=== PATIENT | female | born 1930 | race Caucasian/White ===

== ENCOUNTER 2017-06-04 16:55 | Outpatient (CLI) | payer MEDICARE ==
--- NOTE | 2017-06-04 17:31 | XRAY Preliminary Report ---
Exam: XR CHEST 2 VIEW PA/LAT IMPRESSION: No acute disease. [facility] SITE ID: [id number]
--- NOTE | 2017-06-04 17:34 | XRAY Report ---
EXAM: CHEST RADIOGRAPHY EXAM DATE: 06/04/2017 05:19 PM. CLINICAL HISTORY: COUGH. COMPARISON: 05/27/2012. TECHNIQUE: 2 views. FINDINGS: Lungs/Pleura: Hyperexpanded with flattened diaphragm typical of COPD. No localized infiltrate, consol idation, effusion, or pneumothorax. Mediastinum: Heart and mediastinal contours are unremarkable. Other: None. IMPRESSION: No acute disease. [facility] Referring Provider Line: [phone] SITE ID: [id number]
== END 2017-06-04 16:56 | disposition home or self-care (01) ==
LOC: DI 16:55
PROVIDERS: ATTEND Internal Medicine
DX: R05 Cough (principal)
CPT/HCPCS: 71020

== ENCOUNTER 2017-06-28 12:49 | Inpatient (IN) | payer MEDICARE ==
[2017-06-28 13:31] LABS: BASOPHILS % (AUTO) 0.1 %; HCT - HEMATOCRIT 39.6 % (37.0-47.0); HGB - HEMOGLOBIN 13.5 g/dL (12.0-16.0); LYMPHOCYTES # (AUTO) 0.2 10^3/uL (1.5-3.5); LYMPHOCYTES % (AUTO) 1.2 %; MEAN CORPUSCULAR HEMOGLOBIN 30.8 pg (27.0-31.0); MEAN CORPUSCULAR VOLUME 90.7 fL (81.0-99.0); MEAN PLATELET VOLUME 7.4 fL (7.9-10.8); MONOCYTES % (AUTO) 6.2 %; NEUTROPHILS % (AUTO) 92.5 %; RED BLOOD COUNT 4.37 10^6/uL (4.20-5.40); RED CELL DISTRIBUTION WIDTH 13.3 % (12.0-15.0); UNCORRECTED WHITE BLOOD COUNT 16.2 x10^3/uL; WHITE BLOOD COUNT 16.2 x10^3/uL (4.8-10.8)
[2017-06-28 13:39] LABS: ALBUMIN/GLOBULIN RATIO 0.9 (1.0-2.2); BILIRUBIN,TOTAL 0.9 mg/dL (0.2-1.0); BUN - BLOOD UREA NITROGEN 14 mg/dL (6-20); CALCIUM 9.1 mg/dL (8.5-10.3); CARBON DIOXIDE - CO2 24 mmol/L (21-32); CHLORIDE 100 mmol/L (101-111); CREATININE 0.6 mg/dL (0.4-1.0); GFR - MDRD 95 (>89); GLUCOSE 185 mg/dL (70-100); LIPASE 17 U/L (22-51); POTASSIUM 4.1 mmol/L (3.5-5.0); SODIUM 135 mmol/L (135-145); TOTAL PROTEIN 7.8 g/dL (6.7-8.2)
[2017-06-28] MEDS ORDERED: SODIUM CHLORIDE 0.9% 1,000 ML IV ONE ×3 (13:49→14:11)
--- NOTE | 2017-06-28 13:49 | XRAY Preliminary Report ---
Exam: XR CHEST 1 VIEW IMPRESSION: 1. Right basal opacity may reflect pneumonia. [facility] SITE ID: [id number]
--- NOTE | 2017-06-28 13:52 | XRAY Report ---
EXAM: CHEST RADIOGRAPHY EXAM DATE: 06/28/2017 01:30 PM. CLINICAL HISTORY: Cough. COMPARISON: 06/04/2017. TECHNIQUE: 1 view. FINDINGS: Lungs/Pleura: Mild right lung base opacity may reflect pneumonia. Lungs are otherwise clear. No pleur al effusion or pneumothorax. Apparent mild pulmonary hyperinflation may reflect COPD. Mediastinum: Unremarkable. Other: None. IMPRESSION: 1. Right basal opacity may reflect pneumonia. [facility] Referring Provider Line: [phone] SITE ID: [id number]
--- NOTE | 2017-06-28 13:53 | ED Physician Documentation ---
History of Present Illness - Stated complaint Stated Complaint: DIFF BREATHING - Chief complaint Chief Complaint: Resp - History obtained from History obtained from: Patient, Family - History of Present Illness Timing: How many days ago (several) Pain level max: 0 Pain level now: 0 Improved by: nothing Worsened by: nothing - Additonal information Additional information: Patient is an 86-year-old female with Parkinson's disease who lives at home. Over the past few days has had increased coughing and increasing weakness. No fevers. Has had a history of recurrent pneumonia in the past. No recent antibiotics. Review of Systems Ten Systems: 10 systems reviewed and negative Constitutional: denies: Fever, Chills Ears: denies: Ear pain Nose: denies: Rhinorrhea / runny nose, Congestion Throat: denies: Sore throat Cardiac: denies: Chest pain / pressure Respiratory: reports: Cough GI: denies: Nausea, Vomiting, Diarrhea Skin: denies: Rash Musculoskeletal: denies: Neck pain, Back pain Neurologic: reports: Generalized weakness. denies: Focal weakness, Numbness, Headache PD PAST MEDICAL HISTORY - Past Medical History Past Medical History: Yes Neuro: Parkinson's - Present Medications Home Medications: Ambulatory Orders Medication Instructions Recorded Confirmed Carbidopa/Levodopa [Carbidopa-Levo 1 each SL BID 06/28/17 ER 25-100 Tab] Carbidopa/Levodopa 1 tab SL BID 06/28/17 06/28/17 [Carbidopa-Levodopa 25-100 Tab] Hypromellose [Pure & Gentle Eye 15 ml OP PRN PRN 06/28/17 06/28/17 Drops] Mineral Oil/Petrolatum,White 1 applic OP QPM 06/28/17 06/28/17 [Lubrifresh Pm Eye Ointment] Tolterodine Tartrate [Tolterodine 2 mg PO QPM 06/28/17 06/28/17 Tartrate ER] - Allergies Allergies/Adverse Reactions: Allergies Allergy/AdvReac Type Severity Reaction Status Date / Time Penicillins Allergy Unknown Verified 06/28/17 13:03 shellfish derived Allergy Anaphylaxis Verified 06/28/17 13:04 - Living Situation Living Situation: reports: With family Living Arrangement: reports: At home - Social History Does the pt smoke?: No Does the pt drink ETOH?: No Does the pt have substance abuse?: No - Family History Family history: reports: Non contributory PD ED PE NORMAL - Vitals Vital signs reviewed: Yes - General General: Alert and oriented X 3, No acute distress - HEENT HEENT: Ears normal, Moist mucous membranes, Pharynx benign - Neck Neck: Supple, no meningeal sign - Cardiac Cardiac: RRR - Respiratory Respiratory: No respiratory distress, Other (rhonchi B) - Abdomen Abdomen: Soft, Non tender, Non distended - Derm Derm: Warm and dry, No rash - Extremities Extremities: No edema, No calf tenderness / cord - Neuro Neuro: Alert and oriented X 3 Results - Vitals Vitals: Vital Signs - 24 hr 06/28/17 06/28/17 12:59 13:05 Temperature 36.9 C Heart Rate 118 H 112 H Respiratory 20 18 Rate Blood Pressure 115/74 107/72 O2 Saturation 92 95 Oxygen O2 Source Nasal cannula Oxygen Flow Rate 2 - EKG (time done) 1305 Rate: Rate (enter#) (109) Rhythm: Sinus tachycardia [place]: Normal Intervals: Normal [place] QRS: Normal Ischemia: Non specific changes - Labs Labs: Laboratory Tests 06/28/17 06/28/17 06/28/17 13:15 13:15 13:15 WBC 16.2 H RBC 4.37 Hgb 13.5 Hct 39.6 MCV 90.7 MCH 30.8 MCHC 34.0 RDW 13.3 Plt Count 306 MPV 7.4 L Neut # 15.0 H Lymph # 0.2 L [place] # 1.0 Eos # 0.0 Baso # 0.0 Absolute Nucleated RBC 0.00 Nucleated RBC % 0.0 Sodium 135 Potassium 4.1 Chloride 100 L Carbon Dioxide 24 Anion Gap 11.0 BUN 14 Creatinine 0.6 Estimated GFR (MDRD) 95 Glucose 185 H Lactic Acid 2.5 H Calcium 9.1 Total Bilirubin 0.9 AST 15 ALT < 10 L Alkaline Phosphatase 57 Troponin I B-Natriuretic Peptide Total Protein 7.8 Albumin 3.7 Globulin 4.1 Albumin/Globulin Ratio 0.9 L Lipase 17 L 06/28/17 06/28/17 13:15 13:15 WBC RBC Hgb Hct MCV MCH MCHC RDW Plt Count MPV Neut # Lymph # [place] # Eos # Baso # Absolute Nucleated RBC Nucleated RBC % Sodium Potassium Chloride Carbon Dioxide Anion Gap BUN Creatinine Estimated GFR (MDRD) Glucose Lactic Acid Calcium Total Bilirubin AST ALT Alkaline Phosphatase Troponin I 0.04 B-Natriuretic Peptide 88 Total Protein Albumin Globulin Albumin/Globulin Ratio Lipase - Rads (name of study) cxr Radiology: Prelim report reviewed, EMP read contemporaneously, See rad report ( R basilar opacity. Poss pneumonia) PD MEDICAL DECISION MAKING - ED course Complexity details: reviewed results, re-evaluated patient, considered differential, d/w patient, d/w family, d/w client consultant (Lisbet Odell (hospitalist )) ED course: Patient is an 86-year-old female with parkinsons who presents to the emergency department what appears to be pneumonia. She is a DNR with limited interventions. She was started on IV antibiotics as well as given IV fluids. Discussed the case with the hospitalist who accepts. She is also hypoxic and started on oxygen. This document was made in part using voice recognition software. While efforts are made to proofread this document, sound alike and grammatical errors may occur. Departure - Departure Disposition: 66 [facility] DC/Xfer Clinical Impression: Pneumonia Qualifiers: Pneumonia type: due to unspecified organism Laterality: right Lung location: lower lobe of lung Qualified Code(s): J18.1 - Lobar pneumonia, unspecified organism Sepsis Qualifiers: Sepsis type: sepsis due to unspecified organism Qualified Code(s): A41.9 - Sepsis, unspecified organism Condition: Stable Discharge Date/Time: 06/28/17 15:20
[2017-06-28] MEDS ORDERED: SODIUM CHLORIDE FLUSH 0.9% 10 ML SYRINGE IVP PRN (14:57)
[2017-06-28] MEDS ORDERED: ZOLPIDEM 5 MG TABLET PO PRN (15:00)
[2017-06-28] MEDS ORDERED: PROCHLORPERAZINE 10 MG/2 ML VIAL IVP PRN (15:00)
[2017-06-28] MEDS ORDERED: ACETAMINOPHEN 325 MG TABLET PO PRN (15:00)
[2017-06-28 15:34] LABS: BILIRUBIN,URINE NEGATIVE (NEGATIVE); PH,URINE 6.5 PH (5.0-7.5)
[2017-06-28 15:49] LABS: UR CULTURE IF IND NOT INDICATED; WBC,URINE 0-3 /HPF (0-5)
[2017-06-28] MEDS ORDERED: SODIUM CHLORIDE 0.9% 1,000 ML IV SCH (16:00)
[2017-06-28] MEDS: CLINDAMYCIN 600 MG/50 ML 50 ML IV SCH (17:36)
[2017-06-28] MEDS: SODIUM CHLORIDE FLUSH 0.9% 10 ML SYRINGE IVP SCH (19:25)
[2017-06-28] MEDS: LACTATED RINGERS 1,000 ML IV SCH (19:25)
[2017-06-28] MEDS ORDERED: HYPROMELLOSE OP PRN (19:40)
[2017-06-28] MEDS ORDERED: CARBIDOPA/LEVODOPA ER 25 MG/100 MG TABLET PO SCH (21:00)
[2017-06-28] MEDS ORDERED: CARBIDOPA/LEVODOPA 25 MG/100 MG TABLET PO SCH (21:00)
[2017-06-28] MEDS: TOLTERODINE LA 2 MG CAPSULE PO SCH (21:45)
[2017-06-28] MEDS: CARBIDOPA/LEVODOPA 25 MG/100 MG TABLET PO SCH (22:00)
[2017-06-29] MEDS: CLINDAMYCIN 600 MG/50 ML 50 ML IV SCH ×3 (00:50→16:47)
[2017-06-29] MEDS ORDERED: CARBOXYMETHYLCELLULOSE OPHTH DROPS EACHEYE PRN (03:25)
[2017-06-29] MEDS: SODIUM CHLORIDE FLUSH 0.9% 10 ML SYRINGE IVP SCH ×3 (04:33→20:23)
[2017-06-29] MEDS: LACTATED RINGERS 1,000 ML IV SCH ×2 (05:11→16:47)
[2017-06-29 05:21] LABS: BASOPHILS % (AUTO) 0.2 %; EOSINOPHILS % (AUTO) 0.2 %; HCT - HEMATOCRIT 32.9 % (37.0-47.0); LYMPHOCYTES # (AUTO) 0.5 10^3/uL (1.5-3.5); LYMPHOCYTES % (AUTO) 3.9 %; MEAN CORPUSCULAR HEMOGLOBIN 30.9 pg (27.0-31.0); MEAN CORPUSCULAR HGB CONC 33.5 g/dL (32.0-36.0); MEAN CORPUSCULAR VOLUME 92.1 fL (81.0-99.0); MEAN PLATELET VOLUME 7.3 fL (7.9-10.8); MONOCYTES # (AUTO) 1.1 10^3/uL (0.0-1.0); MONOCYTES % (AUTO) 8.8 %; NEUTROPHILS # (AUTO) 11.2 10^3/uL (1.5-6.6); NEUTROPHILS % (AUTO) 86.9 %; RED BLOOD COUNT 3.57 10^6/uL (4.20-5.40); RED CELL DISTRIBUTION WIDTH 13.4 % (12.0-15.0); UNCORRECTED WHITE BLOOD COUNT 12.9 x10^3/uL; WHITE BLOOD COUNT 12.9 x10^3/uL (4.8-10.8)
[2017-06-29 05:25] LABS: INR 1.4 (0.8-1.2); PT - PROTHROMBIN TIME 15.1 secs (9.9-12.6)
[2017-06-29 05:32] LABS: CALCIUM 8.4 mg/dL (8.5-10.3); CREATININE 0.4 mg/dL (0.4-1.0); MAGNESIUM 1.7 mg/dL (1.7-2.8); POTASSIUM 3.7 mmol/L (3.5-5.0)
[2017-06-29] MEDS ORDERED: FAMOTIDINE 20 MG TABLET PO SCH (09:00)
--- NOTE | 2017-06-29 09:45 | XRAY Report ---
FRONTAL CHEST: 06/29/2017 CLINICAL INDICATION: Pneumonia. FINDINGS: Frontal view of the chest is compared to previous film of 06/28/2017. The cardiac silhouette is within normal limits. A right basilar infiltrate is increasing. No effusion or pneumothorax is seen. IMPRESSION: INCREASING RIGHT BASILAR INFILTRATE. JOB #: [id number] EXT JOB #:[id number]
--- NOTE | 2017-06-29 09:58 | HISTORY & PHYSICAL EXAMINATION ---
DATE OF ADMISSION: 06/28/2017 HISTORY OF PRESENT ILLNESS: This is an 86-year-old white female with history significant for Parkinson disease who lives at home. Her is her main caregiver. She is able to stand and sit in a wheelchair, but carries out no other activity. She uses a bedside commode. Over the past few days, she has had increasing coughing and overall weakness. There have been no fevers. She has had a history of pneumonia in the past. There have been no recent antibiotics. She was brought to the emergency room with complaint of a significant cough by her and is being admitted for management of pneumonia. REVIEW OF SYSTEMS: She denies a fever. Denies dyspnea, palpitations, chest pain , new edema, change of medications. A comprehensive review of systems was done and the pertinent findings are as above. MEDICATIONS AT HOME 1. Carbidopa/levodopa b.i.d. sublingually. 2. Hypromellose eyedrops. 3. Petroleum LubriFresh eye ointment. 4. Tolterodine tartrate 2 mg p.o. every evening. ALLERGIES 1. PENICILLIN, WHICH CAUSED AN UNKNOWN REACTION. 2. SHELLFISH, WHICH CAUSED ANAPHYLAXIS. FAMILY HISTORY: There are no inherited diseases. SOCIAL HISTORY: She never smoked, drinks no alcohol, and there is no substance abuse. She lives with her and he is her main caregiver. She does not drive a car. She is mostly homebound. PHYSICAL EXAMINATION GENERAL: Reveals a thin, frail, cachectic white female. She has a very wet cough. She is somnolent, but arouses easily and answers questions appropriately. She has flat facies consistent with her Parkinson's. There is no tremor visible. VITAL SIGNS: Blood pressure is 115/74, pulse 81 and sinus rhythm, afebrile at 36.9, respiratory rate 20 and not labored. HEENT: Reveals dry oral mucosa. Her eyes have no evidence of injection or purulent discharge. NECK: Shows no JVD. With the patient at a 30 degree upright angle, chest has diffuse rhonchi. HEART: Heart sounds are inaudible because of the breath sounds. There is no loud murmur. No heave or gallop heard. ABDOMEN: Soft. Positive bowel sounds. No organomegaly, no tenderness. EXTREMITIES: No clubbing, cyanosis, or edema. She is able to move all extremities, but has generalized weakness. NEUROLOGIC: Flat facies. No tremor. No focal neurologic signs. She is alert and oriented, but somnolent; however, easily arousable. LABORATORY: Sodium 135, potassium 4.1, BUN 14, creatinine 0.6. Lactic acid level 2.5. Magnesium was not done. Normal liver tests. Troponin normal, not detected at 0.04, normal lipase. INR 1.4. White blood count 16.2, hemoglobin 30.5, platelet count normal at 306. She has a left shift with neutrophils of 15. Urine pH of 6.5, negative esterase, but positive ketones of 15. Chest x-ray: right basilar opacity consistent with pneumonia at the mid right lung and base of the right lung. EKG: sinus tachycardia with a rate of 109, right bundle branch block, right axis deviation, poor R-wave progression. T-wave abnormality and there is no old EKG available for comparison. IMPRESSION 1. Sepsis with evidence of tachycardia and elevated lactic acid level. 2. Pneumonia, probably aspiration pneumonia given her impaired condition from Parkinson's and location of pneumonia. 3. Parkinson disease with marked weakness and frail condition. 4. History of prior pneumonia. 5. Unknown ocular condition (possible dry eye versus unknown infection). 6. Cachexia. PLAN: Admit the patient on telemetry to monitor her tachycardia. Perform a bedside swallowing evaluation to evaluate for aspiration and if this is positive , then she should be n.p.o. and peripheral calories will be ordered, at this point, using lactated Ringer's solution. Obtain an echo to evaluate LV and RV contractility. Start the patient on IV antibiotics to cover oral anaerobes as I suspect that she has aspiration pneumonia and possibly recurrence of aspiration. Clindamycin IV will be started. Obtain sputum cultures, blood cultures and await their sensitivities. Obtain magnesium level. Continue with her sublingual treatment for Parkinson's, which she is able to manage orally since she can swallow secretions. Probable placement for improving functional status will be needed at the end of this hospitalization into a SNF. JOB #: [id number] EXT JOB #:[id number] [email or web address]
[2017-06-29] MEDS: POLYETHYLENE GLYCOL 3350 17 GM PACKET PO SCH (10:02)
[2017-06-29] MEDS: CARBIDOPA/LEVODOPA 25 MG/100 MG TABLET PO SCH ×2 (10:41→20:23)
[2017-06-29] MEDS: FAMOTIDINE 20 MG/50 ML 50 ML IV SCH (12:39)
--- NOTE | 2017-06-29 14:49 | PROVIDER PROGRESS NOTE ---
Assessment/Plan - Problem List (1) Sepsis Qualifiers: Sepsis type: sepsis due to unspecified organism Qualified Code(s): A41.9 - Sepsis, unspecified organism Assessment/Plan: Tachycardia resolved. WBCs improved. Awaiting sputum and blood culture results. Continue iv antibiotics. (2) Aspiration pneumonia Assessment/Plan: Sputum sample sent and has mixed bacteria. Will await cultures. Continue iv hydration and iv antibiotics Awaiting formal speech therapy eval of swallowing to poss start thickened liquids or pureed diet. Otherwise will need to decide about a PEG tube. (3) Parkinsons disease Assessment/Plan: Pt to resume sl Carbidopa/Levodopa for this condition (order was assumed incorrect and made a po order, by covering Pharmacy overnight). I spoke to our pharmacist Seng and route of administration was corrected. (4) Cachexia Assessment/Plan: After swallowing eval, will determine calorie needs and order appropriate nutrition with consult from [facility] Living Coach. - Current Meds Current Meds: Current Medications Generic Name Dose Route Start Last Admin Trade Name Freq PRN Reason Stop Dose Admin Clindamycin Phosphate 50 mls @ 100 mls/hr 06/28/17 17:00 06/29/17 09:27 Cleocin 600 Mg/50 Ml IV Infused Q8H ELVIRA Infusion Lactated Ringer's 1,000 mls @ 100 mls/hr 06/28/17 18:00 06/29/17 13:09 Lr IV 100 mls/hr .Q10H ELVIRA Infusion Famotidine 50 mls @ 100 mls/hr 06/29/17 11:30 06/29/17 13:09 Pepcid 20 Mg/50 Ml IV Infused DAILY ELVIRA Infusion Polyethylene Glycol 17 gm 06/29/17 09:00 06/29/17 10:02 Miralax PO Not Given DAILY ELVIRA Sodium Chloride 10 ml 06/28/17 22:00 06/29/17 13:57 Normal Saline Flush 0.9% IVP Not Given Q8HR ELVIRA Tolterodine Tartrate 2 mg 06/28/17 21:00 06/28/17 21:45 Detrol La PO Not Given QPM ELVIRA - Lab Result Fish Bone Diagrams: 06/29/17 05:10 06/29/17 05:10 - Additional Planning My Orders: My Active Orders 06/28/17 14:57 IO [RC] IOSHIFT Initiate Bowel Care Protocol [RC] .protocol Initiate Line Care Protocol [RC] .protocol Initiate Personal Care Protoco [RC] .protocol Oxygen Therapy [RC] .PRN Vital Signs [RC] 0800,1600,0000 Sodium Chloride Flush 0.9% [Normal Saline Flush 0.9%] 10 ml IVP PRN PRN Code Status [OTHERS] Routine Condition of Patient [OTHERS] Routine DVT Prophylaxis [OTHERS] Routine 06/28/17 14:59 IV Insert [RC] .ONCE Incentive Spirometry - RT [RC] .tid .tid 06/28/17 15:00 SCDs [RC] QSHIFT Acetaminophen [Tylenol] 650 mg PO Q4HR PRN Prochlorperazine Inj [Compazine Inj] 10 mg IVP Q6HR PRN Zolpidem [Ambien] 5 mg PO QPM PRN 06/28/17 17:00 Clindamycin 600 mg/50 ml [Cleocin 600 mg/50 ml] 50 ml IV Q8H 06/28/17 17:37 DIET [NPO except Meds] [DIET] 06/28/17 18:00 Lactated Ringers [Lr] 1,000 ml IV 100 mls/hr 06/28/17 18:22 CPT - Chest Physical Therapy [RC] .TID 06/28/17 22:00 CUL, RESPIRATORY [RM] Urgent Sodium Chloride Flush 0.9% [Normal Saline Flush 0.9%] 10 ml IVP Q8HR 06/29/17 03:25 Carboxymethylcellulose 1% Opht [Refresh 1% Ophth Drops] 1 drops EACHEYE PRN PRN 06/29/17 09:00 Echo Transthoracic Complete [ECHO] Routine Polyethylene Glycol 3350 [Miralax] 17 gm PO DAILY 06/29/17 11:30 Famotidine 20 mg/50 ml [Pepcid 20 mg/50 ml] 50 ml IV DAILY 06/29/17 14:46 Price Continuation and Care [RC] QSHIFT Price Insertion [RC] QSHIFT 06/29/17 21:00 Carbidopa/Levodopa 25/100 [Sinemet 25 mg/100 mg] 1 tab PO BID Subjective - Subjective Patient Reports: Resting Comfortably Nursing Reports: Other (Has >400 cc residual urine by Doppler, not voiding this shift) Objective Vital Signs: Vital Signs - 24 hr 06/28/17 06/28/17 06/28/17 15:20 15:44 22:00 Temperature 36.6 C 37 C Heart Rate 106 H Heart Rate [ 91 81 Brachial] Respiratory 17 16 16 Rate Blood Pressure 110/70 Blood Pressure 109/67 [Left Radial artery] Blood Pressure 124/68 [Right Brachial artery] O2 Saturation 96 97 98 06/28/17 06/29/17 23:38 10:10 Temperature 37.1 C 36.8 C Heart Rate Heart Rate [ 84 79 Brachial] Respiratory 16 18 Rate Blood Pressure Blood Pressure 127/80 102/53 L [Left Radial artery] Blood Pressure [Right Brachial artery] O2 Saturation 99 98 Oxygen O2 Source Nasal cannula I&O (Last 24 Hrs): Intake and Output Totals x24h 06/27/17 06/28/17 06/29/17 23:59 23:59 23:59 Intake Total 3050 1771.666 Output Total 0 675 Balance 3050 1096.666 General: Other (Sleeping comfrtabvly, in no resp distress) HEENT: Mucous membr. moist/pink, Other (R eye has clear drainage) Neck: Supple Neuro: Other (Weak, answers briefly then falls asleep) Cardiovascular: Regular rate, No murmurs Respiratory: No respiratory distress, Breath sounds nml Abdomen: Soft Extremities: No edema, Other (Skin tenting, upper extremities) - Results Results: Laboratory Results WBC 12.9 x10^3/uL (4.8-10.8) H 06/29/17 05:10 RBC 3.57 10^6/uL (4.20-5.40) L 06/29/17 05:10 Hgb 11.0 g/dL (12.0-16.0) L 06/29/17 05:10 Hct 32.9 % (37.0-47.0) L 06/29/17 05:10 MCV 92.1 fL (81.0-99.0) 06/29/17 05:10 MCH 30.9 pg (27.0-31.0) 06/29/17 05:10 MCHC 33.5 g/dL (32.0-36.0) 06/29/17 05:10 RDW 13.4 % (12.0-15.0) 06/29/17 05:10 Plt Count 223 10^3/uL (130-450) 06/29/17 05:10 MPV 7.3 fL (7.9-10.8) L 06/29/17 05:10 Neut # 11.2 10^3/uL (1.5-6.6) H 06/29/17 05:10 Lymph # 0.5 10^3/uL (1.5-3.5) L 06/29/17 05:10 [place] # 1.1 10^3/uL (0.0-1.0) H 06/29/17 05:10 Eos # 0.0 10^3/uL (0.0-0.7) 06/29/17 05:10 Baso # 0.0 10^3/uL (0.0-0.1) 06/29/17 05:10 Absolute Nucleated RBC 0.00 x10^3/uL 06/29/17 05:10 Nucleated RBC % 0.0 /100WBC 06/29/17 05:10 PT 15.1 secs (9.9-12.6) H 06/29/17 05:10 INR 1.4 (0.8-1.2) H 06/29/17 05:10 Sodium 137 mmol/L (135-145) 06/29/17 05:10 Potassium 3.7 mmol/L (3.5-5.0) 06/29/17 05:10 Chloride 105 mmol/L (101-111) 06/29/17 05:10 Carbon Dioxide 22 mmol/L (21-32) 06/29/17 05:10 Anion Gap 10.0 (6-13) 06/29/17 05:10 BUN 11 mg/dL (6-20) 06/29/17 05:10 Creatinine 0.4 mg/dL (0.4-1.0) 06/29/17 05:10 Estimated GFR (MDRD) 152 (>89) 06/29/17 05:10 Glucose 113 mg/dL (70-100) H 06/29/17 05:10 Lactic Acid 2.5 mmol/L (0.5-2.2) H 06/28/17 13:15 Calcium 8.4 mg/dL (8.5-10.3) L 06/29/17 05:10 Magnesium 1.7 mg/dL (1.7-2.8) 06/29/17 05:10 Total Bilirubin 0.9 mg/dL (0.2-1.0) 06/28/17 13:15 AST 15 IU/L (10-42) 06/28/17 13:15 ALT < 10 IU/L (10-60) L 06/28/17 13:15 Alkaline Phosphatase 57 IU/L (42-121) 06/28/17 13:15 Troponin I < 0.04 ng/mL (<0.49) 06/29/17 09:54 B-Natriuretic Peptide 183 pg/mL (5-100) H 06/29/17 05:10 Total Protein 7.8 g/dL (6.7-8.2) 06/28/17 13:15 Albumin 3.7 g/dL (3.2-5.5) 06/28/17 13:15 Globulin 4.1 g/dL (2.1-4.2) 06/28/17 13:15 Albumin/Globulin Ratio 0.9 (1.0-2.2) L 06/28/17 13:15 Lipase 17 U/L (22-51) L 06/28/17 13:15 Urine Color YELLOW 06/28/17 15:00 Urine Clarity CLEAR (CLEAR) 06/28/17 15:00 Urine pH 6.5 PH (5.0-7.5) 06/28/17 15:00 Ur Specific [place] 1.015 (1.002-1.030) 06/28/17 15:00 Urine Protein NEGATIVE mg/dL (NEGATIVE) 06/28/17 15:00 Urine Glucose (UA) NEGATIVE mg/dL (NEGATIVE) 06/28/17 15:00 Urine Ketones 15 mg/dL (NEGATIVE) H 06/28/17 15:00 Urine Occult Blood TRACE-LYSE (NEGATIVE) 06/28/17 15:00 Urine Nitrite NEGATIVE (NEGATIVE) 06/28/17 15:00 Urine Bilirubin NEGATIVE (NEGATIVE) 06/28/17 15:00 Urine Urobilinogen 0.2 (NORMAL) E.U./dL (NORMAL) 06/28/17 15:00 Ur Leukocyte Esterase NEGATIVE (NEGATIVE) 06/28/17 15:00 Urine RBC 0-5 /HPF (0-5) 06/28/17 15:00 Urine WBC 0-3 /HPF (0-5) 06/28/17 15:00 Ur Squamous Epith Cells RARE Squamous (<= Few) 06/28/17 15:00 Urine Bacteria None Seen /HPF (None Seen) 06/28/17 15:00 Urine Culture Comments NOT INDICATED 06/28/17 15:00 Influenza A (Rapid) Negative (Negative) 06/28/17 19:45 Influenza B (Rapid) Negative (Negative) 06/28/17 19:45 Influenza Types A,B Ag - 06/28/17 19:45
[2017-06-29] MEDS: TOLTERODINE LA 2 MG CAPSULE PO SCH (20:23)
[2017-06-29] MEDS: MINERAL OIL/PETROLAT OPHTH OINT EACHEYE SCH (20:31)
[2017-06-30] MEDS: CLINDAMYCIN 600 MG/50 ML 50 ML IV SCH ×3 (00:15→17:29)
[2017-06-30] MEDS: LACTATED RINGERS 1,000 ML IV SCH ×2 (03:53→14:30)
[2017-06-30] MEDS: SODIUM CHLORIDE FLUSH 0.9% 10 ML SYRINGE IVP SCH ×3 (05:58→21:57)
[2017-06-30] MEDS: FAMOTIDINE 20 MG/50 ML 50 ML IV SCH (08:34)
[2017-06-30] MEDS: CARBIDOPA/LEVODOPA 25 MG/100 MG TABLET PO SCH ×2 (08:36→21:56)
[2017-06-30] MEDS: POLYETHYLENE GLYCOL 3350 17 GM PACKET PO SCH (08:36)
[2017-06-30 11:26] LABS: CALCIUM 8.6 mg/dL (8.5-10.3); CREATININE 0.4 mg/dL (0.4-1.0); POTASSIUM 3.3 mmol/L (3.5-5.0)
[2017-06-30] MEDS ORDERED: GENTAMICIN 240 MG in SODIUM CHLORIDE 0.9% 100ML 100 ML IV SCH (15:00)
[2017-06-30] MEDS ORDERED: ONDANSETRON 4 MG/2 ML VIAL ONE (15:16)
[2017-06-30] MEDS ORDERED: MORPHINE 2 MG/ML SYRINGE ONE (15:17)
--- NOTE | 2017-06-30 17:38 | PROVIDER PROGRESS NOTE ---
Assessment/Plan - Problem List (1) Aspiration pneumonia Assessment/Plan: CXR shows denser pneumonia ESBL Klebsiella in sputum and since she was witnessed to aspirate, still concern over anaerobes Will continue iv Clindamycin and add iv Levofloxacin Continue Chest PT which is helping secretions clear Pt will need a course of Clinda for 7 days plus a 3-4 week course of antibiotics for Klebs-ESBL(+), which could be transitioned to a po Levoflox order (2) Parkinsons disease Assessment/Plan: Continue present meds (3) Cachexia Assessment/Plan: Pt has good appetite and is able to safely ingest soft food and thin liquids Continue present diet order (4) Sepsis Qualifiers: Sepsis type: sepsis due to unspecified organism Qualified Code(s): A41.9 - Sepsis, unspecified organism Assessment/Plan: Resolved - Current Meds Current Meds: Current Medications Generic Name Dose Route Start Last Admin Trade Name Freq PRN Reason Stop Dose Admin Carbidopa/Levodopa 1 tab 06/29/17 21:00 06/30/17 08:36 Sinemet 25 Mg/100 Mg PO 1 tab BID ELVIRA Administration Clindamycin Phosphate 50 mls @ 100 mls/hr 06/28/17 17:00 06/30/17 17:29 Cleocin 600 Mg/50 Ml IV 100 mls/hr Q8H ELVIRA Administration Lactated Ringer's 1,000 mls @ 100 mls/hr 06/28/17 18:00 06/30/17 14:30 Lr IV 100 mls/hr .Q10H ELVIRA Administration Famotidine 50 mls @ 100 mls/hr 06/29/17 11:30 06/30/17 09:04 Pepcid 20 Mg/50 Ml IV Infused DAILY ELVIRA Infusion Multi-Ingred Cream/Lotion/Oil/Oint 1 applic 06/29/17 21:00 06/29/17 20:31 Lubrifresh Pm Ophth Oint EACHEYE 1 applic QPM ELVIRA Administration Polyethylene Glycol 17 gm 06/29/17 09:00 06/30/17 08:36 Miralax PO 17 gm DAILY ELVIRA Administration Sodium Chloride 10 ml 06/28/17 22:00 06/30/17 13:00 Normal Saline Flush 0.9% IVP Not Given Q8HR ELVIRA Tolterodine Tartrate 2 mg 06/28/17 21:00 06/29/17 20:23 Detrol La PO 2 mg QPM ELVIRA Administration - Lab Result Fish Bone Diagrams: 06/29/17 05:10 06/30/17 10:24 - Additional Planning My Orders: My Active Orders 06/29/17 17:49 Acapella (Flutter Valve Device [RC] .tid 06/29/17 21:00 Carbidopa/Levodopa 25/100 [Sinemet 25 mg/100 mg] 1 tab PO BID 06/30/17 17:00 levoFLOXacin 750 MG/150 ML [Levaquin 750 mg/150 ml] 750 mg in 150 ml IV Q48H 06/30/17 Breakfast DIET [Dysphagia Puree Diet] [DIET] 07/01/17 05:00 BMP - BASIC METABOLIC PANEL [CHEM] Routine CBC - COMP BLD CT W/AUTO DIFF [HEME] Routine MAGNESIUM [CHEM] Routine Subjective - Subjective Patient Reports: Resting Comfortably Nursing Reports: Other (Eating with appetite sitting upright Has abn spt cultures w/ ESBL producing Klebsiella pneum.) Objective Vital Signs: Vital Signs - 24 hr 06/29/17 06/29/17 06/30/17 20:02 23:43 08:00 Temperature 37.2 C 36.9 C Heart Rate [ 88 85 83 Brachial] Respiratory 18 18 16 Rate Blood Pressure 123/63 101/51 L [Left Radial artery] Blood Pressure 104/59 L [Right Brachial artery] O2 Saturation 97 94 95 06/30/17 15:27 Temperature 36.8 C Heart Rate [ 89 Brachial] Respiratory 18 Rate Blood Pressure 104/52 L [Left Radial artery] Blood Pressure [Right Brachial artery] O2 Saturation 96 Oxygen O2 Source Room air I&O (Last 24 Hrs): Intake and Output Totals x24h 06/28/17 06/29/17 06/30/17 23:59 23:59 23:59 Intake Total 3050 2325.000 2641.667 Output Total 0 1375 585 Balance 3050 739.764 9111.667 General: No acute distress HEENT: Mucous membr. moist/pink Neck: Supple Neuro: Alert, Other (Lethargic but awakens) Cardiovascular: Regular rate Respiratory: No respiratory distress Abdomen: Soft Extremities: No edema - Results Results: Laboratory Results WBC 12.9 x10^3/uL (4.8-10.8) H 06/29/17 05:10 RBC 3.57 10^6/uL (4.20-5.40) L 06/29/17 05:10 Hgb 11.0 g/dL (12.0-16.0) L 06/29/17 05:10 Hct 32.9 % (37.0-47.0) L 06/29/17 05:10 MCV 92.1 fL (81.0-99.0) 06/29/17 05:10 MCH 30.9 pg (27.0-31.0) 06/29/17 05:10 MCHC 33.5 g/dL (32.0-36.0) 06/29/17 05:10 RDW 13.4 % (12.0-15.0) 06/29/17 05:10 Plt Count 223 10^3/uL (130-450) 06/29/17 05:10 MPV 7.3 fL (7.9-10.8) L 06/29/17 05:10 Neut # 11.2 10^3/uL (1.5-6.6) H 06/29/17 05:10 Lymph # 0.5 10^3/uL (1.5-3.5) L 06/29/17 05:10 [place] # 1.1 10^3/uL (0.0-1.0) H 06/29/17 05:10 Eos # 0.0 10^3/uL (0.0-0.7) 06/29/17 05:10 Baso # 0.0 10^3/uL (0.0-0.1) 06/29/17 05:10 Absolute Nucleated RBC 0.00 x10^3/uL 06/29/17 05:10 Nucleated RBC % 0.0 /100WBC 06/29/17 05:10 PT 15.1 secs (9.9-12.6) H 06/29/17 05:10 INR 1.4 (0.8-1.2) H 06/29/17 05:10 Sodium 138 mmol/L (135-145) 06/30/17 10:24 Potassium 3.3 mmol/L (3.5-5.0) L 06/30/17 10:24 Chloride 102 mmol/L (101-111) 06/30/17 10:24 Carbon Dioxide 25 mmol/L (21-32) 06/30/17 10:24 Anion Gap 11.0 (6-13) 06/30/17 10:24 BUN 8 mg/dL (6-20) 06/30/17 10:24 Creatinine 0.4 mg/dL (0.4-1.0) 06/30/17 10:24 Estimated GFR (MDRD) 152 (>89) 06/30/17 10:24 Glucose 129 mg/dL (70-100) H 06/30/17 10:24 Lactic Acid 2.5 mmol/L (0.5-2.2) H 06/28/17 13:15 Calcium 8.6 mg/dL (8.5-10.3) 06/30/17 10:24 Magnesium 1.7 mg/dL (1.7-2.8) 06/29/17 05:10 Total Bilirubin 0.9 mg/dL (0.2-1.0) 06/28/17 13:15 AST 15 IU/L (10-42) 06/28/17 13:15 ALT < 10 IU/L (10-60) L 06/28/17 13:15 Alkaline Phosphatase 57 IU/L (42-121) 06/28/17 13:15 Troponin I < 0.04 ng/mL (<0.49) 06/29/17 09:54 B-Natriuretic Peptide 183 pg/mL (5-100) H 06/29/17 05:10 Total Protein 7.8 g/dL (6.7-8.2) 06/28/17 13:15 Albumin 3.7 g/dL (3.2-5.5) 06/28/17 13:15 Globulin 4.1 g/dL (2.1-4.2) 06/28/17 13:15 Albumin/Globulin Ratio 0.9 (1.0-2.2) L 06/28/17 13:15 Lipase 17 U/L (22-51) L 06/28/17 13:15 Urine Color YELLOW 06/28/17 15:00 Urine Clarity CLEAR (CLEAR) 06/28/17 15:00 Urine pH 6.5 PH (5.0-7.5) 06/28/17 15:00 Ur Specific [place] 1.015 (1.002-1.030) 06/28/17 15:00 Urine Protein NEGATIVE mg/dL (NEGATIVE) 06/28/17 15:00 Urine Glucose (UA) NEGATIVE mg/dL (NEGATIVE) 06/28/17 15:00 Urine Ketones 15 mg/dL (NEGATIVE) H 06/28/17 15:00 Urine Occult Blood TRACE-LYSE (NEGATIVE) 06/28/17 15:00 Urine Nitrite NEGATIVE (NEGATIVE) 06/28/17 15:00 Urine Bilirubin NEGATIVE (NEGATIVE) 06/28/17 15:00 Urine Urobilinogen 0.2 (NORMAL) E.U./dL (NORMAL) 06/28/17 15:00 Ur Leukocyte Esterase NEGATIVE (NEGATIVE) 06/28/17 15:00 Urine RBC 0-5 /HPF (0-5) 06/28/17 15:00 Urine WBC 0-3 /HPF (0-5) 06/28/17 15:00 Ur Squamous Epith Cells RARE Squamous (<= Few) 06/28/17 15:00 Urine Bacteria None Seen /HPF (None Seen) 06/28/17 15:00 Urine Culture Comments NOT INDICATED 06/28/17 15:00 Influenza A (Rapid) Negative (Negative) 06/28/17 19:45 Influenza B (Rapid) Negative (Negative) 06/28/17 19:45 Influenza Types A,B Ag - 06/28/17 19:45
[2017-06-30] MEDS: levoFLOXacin 750 MG/150 ML 750 MG/150 ML BAG IV SCH (18:52)
[2017-06-30] MEDS: TOLTERODINE LA 2 MG CAPSULE PO SCH (21:56)
[2017-06-30] MEDS: MINERAL OIL/PETROLAT OPHTH OINT EACHEYE SCH (21:56)
[2017-07-01] MEDS: CLINDAMYCIN 600 MG/50 ML 50 ML IV SCH ×3 (01:10→18:03)
[2017-07-01] MEDS: LACTATED RINGERS 1,000 ML IV SCH ×3 (01:43→23:56)
[2017-07-01] MEDS: SODIUM CHLORIDE FLUSH 0.9% 10 ML SYRINGE IVP SCH ×3 (04:49→20:06)
[2017-07-01 05:38] LABS: BASOPHILS % (AUTO) 0.5 %; EOSINOPHILS # (AUTO) 0.1 10^3/uL (0.0-0.7); HCT - HEMATOCRIT 30.7 % (37.0-47.0); HGB - HEMOGLOBIN 10.4 g/dL (12.0-16.0); LYMPHOCYTES # (AUTO) 0.6 10^3/uL (1.5-3.5); MEAN CORPUSCULAR HEMOGLOBIN 30.6 pg (27.0-31.0); MEAN CORPUSCULAR VOLUME 90.2 fL (81.0-99.0); MEAN PLATELET VOLUME 7.9 fL (7.9-10.8); MONOCYTES # (AUTO) 0.7 10^3/uL (0.0-1.0); MONOCYTES % (AUTO) 9.2 %; NEUTROPHILS # (AUTO) 6.6 10^3/uL (1.5-6.6); NEUTROPHILS % (AUTO) 82.3 %; RED CELL DISTRIBUTION WIDTH 13.4 % (12.0-15.0); UNCORRECTED WHITE BLOOD COUNT 8.1 x10^3/uL; WHITE BLOOD COUNT 8.1 x10^3/uL (4.8-10.8)
[2017-07-01 05:49] LABS: CALCIUM 7.8 mg/dL (8.5-10.3); CREATININE 0.4 mg/dL (0.4-1.0); MAGNESIUM 1.6 mg/dL (1.7-2.8); POTASSIUM 3.1 mmol/L (3.5-5.0)
[2017-07-01] MEDS: POLYETHYLENE GLYCOL 3350 17 GM PACKET PO SCH (09:18)
[2017-07-01] MEDS: CARBIDOPA/LEVODOPA 25 MG/100 MG TABLET PO SCH ×2 (09:18→20:05)
[2017-07-01] MEDS: FAMOTIDINE 20 MG/50 ML 50 ML IV SCH (09:19)
[2017-07-01] MEDS ORDERED: BACITRACIN OINT TOP PRN (09:24)
--- NOTE | 2017-07-01 17:34 | PROVIDER PROGRESS NOTE ---
Assessment/Plan - Problem List (1) Aspiration pneumonia Assessment/Plan: Pulmonary status improving. Continue a 7-10 day course of Clindamycin (2) Klebsiella pneumonia Qualifiers: Laterality: right Assessment/Plan: Pt now on Levofloxacin iv for ESBL Klebsiella, in addition to Clindamycin (as above) This course of treatment for ESBL is planned for 4 weeks. I have tried to reach our Infectious disease RN to determine if droplet precautions need to continue. She was not here today. (3) Parkinsons disease Assessment/Plan: Stable and RN was able to get po med swallowed with applesauce Crushing this med was recommended by Speach Therapist during swallowing eval. Will continue this med. (4) Cachexia Assessment/Plan: Improved nutrition as infection improving and with changed consistency of food. - Current Meds Current Meds: Current Medications Generic Name Dose Route Start Last Admin Trade Name Freq PRN Reason Stop Dose Admin Bacitracin 1 packet 07/01/17 09:24 07/01/17 14:05 Bacitracin TOP 1 packet PRN PRN Administration Skin Care Carbidopa/Levodopa 1 tab 06/29/17 21:00 07/01/17 09:18 Sinemet 25 Mg/100 Mg PO 1 tab BID ELVIRA Administration Clindamycin Phosphate 50 mls @ 100 mls/hr 06/28/17 17:00 07/01/17 10:40 Cleocin 600 Mg/50 Ml IV Infused Q8H ELVIRA Infusion Lactated Ringer's 1,000 mls @ 100 mls/hr 06/28/17 18:00 07/01/17 12:40 Lr IV 100 mls/hr .Q10H ELVIRA Administration Famotidine 50 mls @ 100 mls/hr 06/29/17 11:30 07/01/17 09:49 Pepcid 20 Mg/50 Ml IV Infused DAILY ELVIRA Infusion Levofloxacin 750 mg in 150 mls @ 100 mls/hr 06/30/17 17:00 06/30/17 20:25 Levaquin 750 Mg/150 Ml IV Infused Q48H ELVIRA Infusion Multi-Ingred Cream/Lotion/Oil/Oint 1 applic 06/29/17 21:00 06/30/17 21:56 Lubrifresh Pm Ophth Oint EACHEYE 1 applic QPM ELVIRA Administration Polyethylene Glycol 17 gm 06/29/17 09:00 07/01/17 09:18 Miralax PO 17 gm DAILY ELVIRA Administration Sodium Chloride 10 ml 06/28/17 22:00 07/01/17 14:04 Normal Saline Flush 0.9% IVP Not Given Q8HR ELVIRA Tolterodine Tartrate 2 mg 06/28/17 21:00 06/30/17 21:56 Detrol La PO 2 mg QPM ELVIRA Administration - Lab Result Fish Bone Diagrams: 07/01/17 05:09 07/01/17 05:09 - Additional Planning My Orders: My Active Orders 06/30/17 17:00 levoFLOXacin 750 MG/150 ML [Levaquin 750 mg/150 ml] 750 mg in 150 ml IV Q48H 07/01/17 09:24 Bacitracin Oint [Bacitracin] 1 packet TOP PRN PRN 07/01/17 12:30 CUL, EYE [RM] Urgent Subjective - Subjective Patient Reports: Resting Comfortably Objective Vital Signs: Vital Signs - 24 hr 07/01/17 07/01/17 07/01/17 00:00 10:40 16:00 Temperature 36.8 C 36.4 C L 36.5 C Heart Rate [ 87 86 88 Brachial] Respiratory 20 20 16 Rate Blood Pressure 138/62 H [Left Brachial artery] Blood Pressure 104/68 [Left Radial artery] Blood Pressure 103/55 L [Right Brachial artery] O2 Saturation 96 94 94 Oxygen O2 Source Room air I&O (Last 24 Hrs): Intake and Output Totals x24h 06/29/17 06/30/17 07/01/17 23:59 23:59 23:59 Intake Total 2325.000 2941.667 2245 Output Total 6486 168 3957 Balance 632.709 9444.667 -30 General: Other (Awake and able to eat sitting upright, otherwise sleeps) HEENT: Mucous membr. moist/pink Neck: Supple Cardiovascular: Regular rate Respiratory: No respiratory distress Abdomen: Soft Extremities: No edema - Results Results: Laboratory Results WBC 8.1 x10^3/uL (4.8-10.8) 07/01/17 05:09 RBC 3.40 10^6/uL (4.20-5.40) L 07/01/17 05:09 Hgb 10.4 g/dL (12.0-16.0) L 07/01/17 05:09 Hct 30.7 % (37.0-47.0) L 07/01/17 05:09 MCV 90.2 fL (81.0-99.0) 07/01/17 05:09 MCH 30.6 pg (27.0-31.0) 07/01/17 05:09 MCHC 34.0 g/dL (32.0-36.0) 07/01/17 05:09 RDW 13.4 % (12.0-15.0) 07/01/17 05:09 Plt Count 246 10^3/uL (130-450) 07/01/17 05:09 MPV 7.9 fL (7.9-10.8) 07/01/17 05:09 Neut # 6.6 10^3/uL (1.5-6.6) 07/01/17 05:09 Lymph # 0.6 10^3/uL (1.5-3.5) L 07/01/17 05:09 [place] # 0.7 10^3/uL (0.0-1.0) 07/01/17 05:09 Eos # 0.1 10^3/uL (0.0-0.7) 07/01/17 05:09 Baso # 0.0 10^3/uL (0.0-0.1) 07/01/17 05:09 Absolute Nucleated RBC 0.00 x10^3/uL 07/01/17 05:09 Nucleated RBC % 0.0 /100WBC 07/01/17 05:09 PT 15.1 secs (9.9-12.6) H 06/29/17 05:10 INR 1.4 (0.8-1.2) H 06/29/17 05:10 Sodium 137 mmol/L (135-145) 07/01/17 05:09 Potassium 3.1 mmol/L (3.5-5.0) L 07/01/17 05:09 Chloride 104 mmol/L (101-111) 07/01/17 05:09 Carbon Dioxide 27 mmol/L (21-32) 07/01/17 05:09 Anion Gap 6.0 (6-13) 07/01/17 05:09 BUN 8 mg/dL (6-20) 07/01/17 05:09 Creatinine 0.4 mg/dL (0.4-1.0) 07/01/17 05:09 Estimated GFR (MDRD) 152 (>89) 07/01/17 05:09 Glucose 109 mg/dL (70-100) H 07/01/17 05:09 Lactic Acid 2.5 mmol/L (0.5-2.2) H 06/28/17 13:15 Calcium 7.8 mg/dL (8.5-10.3) L 07/01/17 05:09 Magnesium 1.6 mg/dL (1.7-2.8) L 07/01/17 05:09 Total Bilirubin 0.9 mg/dL (0.2-1.0) 06/28/17 13:15 AST 15 IU/L (10-42) 06/28/17 13:15 ALT < 10 IU/L (10-60) L 06/28/17 13:15 Alkaline Phosphatase 57 IU/L (42-121) 06/28/17 13:15 Troponin I < 0.04 ng/mL (<0.49) 06/29/17 09:54 B-Natriuretic Peptide 183 pg/mL (5-100) H 06/29/17 05:10 Total Protein 7.8 g/dL (6.7-8.2) 06/28/17 13:15 Albumin 3.7 g/dL (3.2-5.5) 06/28/17 13:15 Globulin 4.1 g/dL (2.1-4.2) 06/28/17 13:15 Albumin/Globulin Ratio 0.9 (1.0-2.2) L 06/28/17 13:15 Lipase 17 U/L (22-51) L 06/28/17 13:15 Urine Color YELLOW 06/28/17 15:00 Urine Clarity CLEAR (CLEAR) 06/28/17 15:00 Urine pH 6.5 PH (5.0-7.5) 06/28/17 15:00 Ur Specific [place] 1.015 (1.002-1.030) 06/28/17 15:00 Urine Protein NEGATIVE mg/dL (NEGATIVE) 06/28/17 15:00 Urine Glucose (UA) NEGATIVE mg/dL (NEGATIVE) 06/28/17 15:00 Urine Ketones 15 mg/dL (NEGATIVE) H 06/28/17 15:00 Urine Occult Blood TRACE-LYSE (NEGATIVE) 06/28/17 15:00 Urine Nitrite NEGATIVE (NEGATIVE) 06/28/17 15:00 Urine Bilirubin NEGATIVE (NEGATIVE) 06/28/17 15:00 Urine Urobilinogen 0.2 (NORMAL) E.U./dL (NORMAL) 06/28/17 15:00 Ur Leukocyte Esterase NEGATIVE (NEGATIVE) 06/28/17 15:00 Urine RBC 0-5 /HPF (0-5) 06/28/17 15:00 Urine WBC 0-3 /HPF (0-5) 06/28/17 15:00 Ur Squamous Epith Cells RARE Squamous (<= Few) 06/28/17 15:00 Urine Bacteria None Seen /HPF (None Seen) 06/28/17 15:00 Urine Culture Comments NOT INDICATED 06/28/17 15:00 Influenza A (Rapid) Negative (Negative) 06/28/17 19:45 Influenza B (Rapid) Negative (Negative) 06/28/17 19:45 Influenza Types A,B Ag - 06/28/17 19:45
[2017-07-01] MEDS: MINERAL OIL/PETROLAT OPHTH OINT EACHEYE SCH (20:05)
[2017-07-01] MEDS: TOLTERODINE LA 2 MG CAPSULE PO SCH (20:05)
[2017-07-02] MEDS: CLINDAMYCIN 600 MG/50 ML 50 ML IV SCH ×3 (00:16→17:00)
[2017-07-02] MEDS: SODIUM CHLORIDE FLUSH 0.9% 10 ML SYRINGE IVP SCH ×3 (05:46→22:28)
[2017-07-02] MEDS: FAMOTIDINE 20 MG/50 ML 50 ML IV SCH (08:55)
[2017-07-02] MEDS: POLYETHYLENE GLYCOL 3350 17 GM PACKET PO SCH (09:15)
[2017-07-02] MEDS: CARBIDOPA/LEVODOPA 25 MG/100 MG TABLET PO SCH ×2 (09:15→20:45)
[2017-07-02] MEDS: LACTATED RINGERS 1,000 ML IV SCH ×3 (10:48→22:28)
[2017-07-02] MEDS: levoFLOXacin 750 MG/150 ML 750 MG/150 ML BAG IV SCH (17:00)
--- NOTE | 2017-07-02 18:57 | PROVIDER PROGRESS NOTE ---
Subjective - Prog Note Date Prog Note Date: 07/02/17 Prog Note Time: 18:54 - Subjective Pt reports feeling: No change Current Medications - Current Medications Current Medications: Active Medications Acetaminophen (Tylenol) 650 mg PO Q4HR PRN PRN Reason: Pain 1 to 4 Last Admin: 07/02/17 05:06 Dose: 650 mg Bacitracin (Bacitracin) 1 packet TOP PRN PRN PRN Reason: Skin Care Last Admin: 07/01/17 14:05 Dose: 1 packet Carbidopa/Levodopa (Sinemet 25 Mg/100 Mg) 1 tab PO BID ELVIRA Last Admin: 07/02/17 09:15 Dose: 1 tab Carboxymethylcellulose (Refresh 1% Ophth Drops) 1 drops EACHEYE PRN PRN PRN Reason: Dry Eye Clindamycin Phosphate (Cleocin 600 Mg/50 Ml) 50 mls @ 100 mls/hr IV Q8H [facility] Last Infusion: 07/02/17 17:31 Dose: Infused Lactated Ringer's (Lr) 1,000 mls @ 100 mls/hr IV .Q10H ELVIRA Last Admin: 07/02/17 10:48 Dose: 100 mls/hr Famotidine (Pepcid 20 Mg/50 Ml) 50 mls @ 100 mls/hr IV DAILY [facility] Last Infusion: 07/02/17 15:13 Dose: Infused Levofloxacin (Levaquin 750 Mg/150 Ml) 750 mg in 150 mls @ 100 mls/hr IV Q48H [facility] Last Infusion: 07/02/17 18:30 Dose: Infused Multi-Ingred Cream/Lotion/Oil/Oint (Lubrifresh Pm Ophth Oint) 1 applic EACHEYE QPM ELVIRA Last Admin: 07/01/17 20:05 Dose: 1 applic Polyethylene Glycol (Miralax) 17 gm PO DAILY [facility] Last Admin: 07/02/17 09:15 Dose: Not Given Potassium Chloride (Micro-K) 40 meq PO DAILYWM [facility] Prochlorperazine Edisylate (Compazine Inj) 10 mg IVP Q6HR PRN PRN Reason: Nausea / Vomiting Sodium Chloride (Normal Saline Flush 0.9%) 10 ml IVP PRN PRN PRN Reason: NEEDED PER PROVIDER ORDERS Sodium Chloride (Normal Saline Flush 0.9%) 10 ml IVP Q8HR ELVIRA Last Admin: 07/02/17 13:35 Dose: Not Given Tolterodine Tartrate (Detrol La) 2 mg PO QPM [facility] Last Admin: 07/01/17 20:05 Dose: 2 mg Zolpidem Tartrate (Ambien) 5 mg PO QPM PRN PRN Reason: Insomnia Carbidopa/Levodopa [Carbidopa-Levodopa 25-100 Tab] 1 tab SL BID 06/28/17 Hypromellose [Pure & Gentle Eye Drops] 1 drops EACHEYE PRN PRN 06/28/17 Tolterodine Tartrate [Tolterodine Tartrate ER] 2 mg PO QPM 06/28/17 Objective - Vital Signs/Intake & Output Reviewed Vital Signs: Yes Vital Signs: Vital Signs x48h Temp Pulse Resp BP Pulse Ox 07/02/17 16:00 36.6 C 81 16 146/74 H 97 Intake & Output: Intake & Output 06/29/17 06/30/17 07/01/17 07/02/17 23:59 23:59 23:59 23:59 Intake Total 2325.000 2941.667 3515 1550.000 Output Total 3814 793 5699 Balance 787.375 0323.667 1040 1550.000 - Lab Results Fish Bones: 07/01/17 05:09 07/01/17 05:09 Assessment/Plan - Problem List (1) Aspiration pneumonia Impression: Pulmonary status improving. Continue a 7-10 day course of Clindamycin Day #5 today (2) Klebsiella pneumonia Qualifiers: Laterality: right Assessment/Plan: Pt now on Levofloxacin iv for ESBL Klebsiella, in addition to Clindamycin (as above) This course of treatment for ESBL is planned for 4 weeks. Day #3 today. I have tried to reach our Infectious disease RN to determine if droplet precautions need to continue. She was not here today. (3) Parkinsons disease Assessment/Plan: Stable and RN was able to get po med swallowed with applesauce Crushing this med was recommended by Speach Therapist during swallowing eval. Will continue this med. (4) Chronic protein calorie malnutrition with cachexia On po diet. Nutrition reviewed with engineer operations and maintenance at case conference this am. no change.
[2017-07-02] MEDS: POTASSIUM CHLORIDE 10 MEQ CAPSULE PO SCH (20:44)
[2017-07-02] MEDS: MINERAL OIL/PETROLAT OPHTH OINT EACHEYE SCH (20:45)
[2017-07-02] MEDS: TOLTERODINE LA 2 MG CAPSULE PO SCH (20:45)
[2017-07-03] MEDS: CLINDAMYCIN 600 MG/50 ML 50 ML IV SCH ×2 (01:05→09:00)
[2017-07-03] MEDS: SODIUM CHLORIDE FLUSH 0.9% 10 ML SYRINGE IVP SCH (06:02)
[2017-07-03] MEDS: LACTATED RINGERS 1,000 ML IV SCH (07:35)
[2017-07-03 07:45] VITALS: BP 126/71
[2017-07-03] MEDS ORDERED: POTASSIUM CHLORIDE 20 MEQ TABLET PO SCH (08:12)
[2017-07-03] MEDS: FAMOTIDINE 20 MG/50 ML 50 ML IV SCH (08:30)
[2017-07-03] MEDS: CARBIDOPA/LEVODOPA 25 MG/100 MG TABLET PO SCH (08:30)
[2017-07-03] MEDS: POLYETHYLENE GLYCOL 3350 17 GM PACKET PO SCH (08:34)
[2017-07-03] MEDS: POTASSIUM CHLORIDE 10 MEQ CAPSULE PO SCH (09:00)
--- NOTE | 2017-07-03 11:20 | Discharge Plan ---
Discharge Plan Disposition: 06 Home Health Service Condition: Good Prescriptions: Clindamycin HCl [Clindamycin 300MG CAP] 300 mg PO TID #6 capsule Levofloxacin [Levaquin] 500 mg PO DAILY #4 tablet Potassium Chloride [Micro-K] 40 meq PO DAILYWM #15 capsule Saccharomyces Boulardii [Florastor] 250 mg PO BID #10 capsule Diet: Soft Activity Restrictions: Activity as Tolerated Shower Restrictions: Yes (needs constant standby assist) Driving Restrictions: Yes (no driving) Assistance Devices: Wheelchair, Walker Additional Instructions or Follow Up instructions: You were admitted to the hospital because of a severe wet cough with chest congestion, shortness of breath and you were witnessed to have aspirated some of your secretions or food. Because of your Parkinson's disease, you have lost quite a bit of weight and your are very weak and frail. Your swallowing mechanism has been impaired. You need to make sure you eat only pured food and drink thick liquids. We identified your problem as aspiration pneumonia. You will need to complete therapy for your pneumonia with 2 antibiotics, clindamycin and Levaquin. While you are on them take a diet supplement called Florastor there is a probiotic to help your bowels while you take antibiotics. Please see Dr. Triny Yin in follow-up in the next 1 week. I will ask home health physical therapy to see you at home as well. Follow-Up Care: Home Health - PT (she has Parkinson's with decreased strength. Needs to have transfer strengthening and truncal stabilty evaluation and treatment.) No Smoking: If you smoke, Please STOP! Call for help. Follow-up with: Triny Yin MD [Primary Care Provider] -
--- NOTE | 2017-07-06 08:45 | DISCHARGE SUMMARY ---
DATE OF ADMISSION: 06/28/2017 DATE OF DISCHARGE: 07/03/2017 DISCHARGE DIAGNOSES 1. Sepsis. 2. Aspiration pneumonia. 3. Klebsiella pneumoniae infection. 4. Parkinson disease. 5. Mild protein calorie malnutrition. 6. Hypokalemia. DISCHARGE MEDICATIONS 1. Clindamycin 300 mg p.o. t.i.d. 2. Levaquin 500 mg p.o. daily. 3. Florastor 250 mg p.o. b.i.d. 4. Micro-K 40 mEq p.o. daily. These are new prescriptions. Old prescriptions: 5. Carbidopa/levodopa 1 tablet sublingual b.i.d. 6. Pure and Gentle eye drops 1 drop each eye daily. 7. Tolterodine tartrate 2 mg p.o. q. p.m. PRINCIPAL PROCEDURES 1. Chest x-ray with right basilar opacity, reflecting pneumonia. 2. Repeat chest x-ray showing increasing right basilar infiltrate. 3. Echocardiogram with normal left ventricular function and ejection fraction of 75%. Mildly abnormal right heart pressures. No significant valvular heart disease. HOSPITAL COURSE: She is an 86-year-old female who lives at home and is taken care of by her . She says that she is basically completely bedbound and relies on him to be able to get out of bed and transfer her to the bedside chairs. Over the last few days she has had increasing cough and overall weakness. No fevers. She does have a history of pneumonia in the past. On examination, she was a very frail, thin, cachectic female. A very wet cough. Somnolent. Flat facies consistent with her Parkinson disease. Blood pressure 115 /74, pulse 81, afebrile at 36.9. She had oral mucosa that was dry. No murmurs. Nontender belly. Sodium was 135, potassium 4.1, BUN 14. Lactic acid 2.5. Troponin level less than 0.04. White cell count was 16.2. Hemoglobin was 13.5, hematocrit 39.6. During her stay, the patient was identified as having witnessed aspiration by nursing staff. She is a very frail woman who is so weak that she cannot lift her head off the bed. Voice is at times inaudible because she speaks in such a soft tone from weakness and probable vocal cord dysfunction that you have to really lean in to hear her. She was treated as aspiration pneumonia. Blood cultures were negative, and respiratory culture showed EBSL producing Klebsiella pneumoniae. She had some growth on conjunctivitis in the left eye and that was cultured and was positive for diphtheroid gram-positive bacilli. She was gently hydrated and given both clindamycin and Levaquin. White cell count came down to 8.1. Hemoglobin drifted down to 10.4. Overall, the patient remained relatively the same as on admission. White cell count improved, but she remained a very weak, frail person with her Parkinson' s. Completely dependent on nursing for activities of daily living. She was seen by Speech Therapy, and she has oral dysphagia related to dentition that is in extremely poor repair. She does not have viable chewing surfaces. At home she eats mashed potatoes, yogurt and other foods requiring little to no chewing. She had a weak tongue, present gag, and palate and laryngeal elevation were normal. Volitional cough was very weak. Weak tongue function, and everything was quite slow consistent with psychomotor retardation from Parkinson's. Her swallowing was complete, no cough was observed. Her voice quality did not change after. She is felt to be moderately impaired with her swallowing, and swallow therapist feels she should be on a pureed, extra moisture diet. Thin liquid consistency. Medications should be put in applesauce. She should be set upright at 90 degrees, tuck her chin, small bites and sips, alternate with liquids and solids. Swallow her 1 bite before she takes another bite. Her mouth should be empty at the end of the meal. She is encouraged to do aggressive oral care. ASSESSMENT AND PLAN: Overall, prognosis is poor for this jones woman who unfortunately is suffering the end-stage manifestations of Parkinson's. She is quite weak. Her was stating that he wanted to still take her home. He did not want her placed anywhere else. As such, she is going to go home with Home Health physical therapy to strengthen her transfer muscles and truncal stability muscles. EXAM: Temperature is 36.9, pulse is 84, blood pressure 126/71, respirations 20 , 97% on room air. She is a thin, pale, elderly woman with masked facies, very low, soft, almost inaudible voice. Hands that are flaccid at rest and when she attempts to use them such as rearranging the sheets on the bed there is a noticeable tremor. She is really unable to lift her arms any further than right off the bed. She cannot lift her legs other than a few centimeters off the bed before they collapse because of weakness. She is unable to sit up by herself. She is discharged in stable condition with a poor prognosis. She is asked to follow up with her primary care provider, Triny Yin, and I have again told her that Physical Therapy should be coming by the house from Home Health to help strengthen her and see if we can increase her movement and mobility. Greater than 30 minutes was spent coordinating discharge. ADDENDUM: I failed to note that the patient had significant hypokalemia in the 2 days before discharge. She was treated with oral potassium 40 meq once daily before discharge and then 80 meq on the day of discharge. She is asked to continue potassium for the next few days as well as her antibiotics and Florastor. I am asking that Dr. Yin repeat her BMP when she sees her in the office. Addendum Ext 07/03/2017 JOB #: [id number] EXT JOB #:[id number] [facility]
== END 2017-07-03 13:34 | disposition home or self-care (01) | DRG 871 ==
LOC: ED 12:49 → MS3 14:56
PROVIDERS: ADMIT Internal Medicine; ATTEND Specialist
DX: A41.9 Sepsis, unspecified organism (principal); J18.1 Lobar pneumonia, unspecified organism; R09.02 Hypoxemia; J69.0 Pneumonitis due to inhalation of food and vomit; Z66 Do not resuscitate; J15.0 Pneumonia due to Klebsiella pneumoniae; E44.1 Mild protein-calorie malnutrition; Z68.1 Body mass index [BMI] 19.9 or less, adult; G20 Parkinson's disease; E87.6 Hypokalemia; H10.89 Other conjunctivitis; R13.11 Dysphagia, oral phase; Z74.01 Bed confinement status; Z16.12 Extended spectrum beta lactamase (ESBL) resistance
CPT/HCPCS: 36415; 51701; 71010; 80048; 80053; 81001; 81003; 83605; 83690; 83735; 83880; 84484; 85025; 85610; 87040; 87070; 87077; 87086; 87205; 87275; 87276; 93005; 93306; 94667; 94668; 99283; 99284; 99285

== ENCOUNTER 2017-08-03 10:12 | Outpatient (CLI) | payer MEDICARE | END 2017-08-03 10:13 | disposition critical access hospital (66) | LOC: EMS 10:12 | PROVIDERS: ATTEND Surgery | DX: R06.00 Dyspnea, unspecified (principal) | CPT/HCPCS: A0425; A0429 ==

== ENCOUNTER 2017-08-03 10:21 | Inpatient (IN) | payer MEDICARE ==
--- NOTE | 2017-08-03 10:49 | ED Physician Documentation ---
History of Present Illness - Stated complaint Stated Complaint: SOA - Chief complaint Chief Complaint: Resp - Additonal information Additional information: hx from pt and EMR 86 f POLST from Jun 2017 DNR comfort care only recently admitted for aspiration pna per EMS told them she has had a gurglin cough and SOA for several days no reported fever pt denies pain no leg edema per EMS room air sat 94%, arrives with NRB on Review of Systems Constitutional: denies: Fever, Chills Cardiac: denies: Chest pain / pressure Respiratory: reports: Dyspnea, Cough Musculoskeletal: denies: Extremity swelling Immunocompromised: denies: Immunocompromised PD PAST MEDICAL HISTORY - Past Medical History Cardiovascular: Deep vein thrombosis Respiratory: COPD, Pneumonia, Shortness of breath Neuro: Parkinson's Endocrine/Autoimmune: None GI: Hepatitis : Incontinence HEENT: Other Psych: Depression Musculoskeletal: Osteoarthritis Derm: Other - Past Surgical History Past Surgical History: Yes HEENT: Cataracts - Present Medications Home Medications: Ambulatory Orders Medication Instructions Recorded Confirmed Hypromellose [Pure & Gentle Eye 1 drops EACHEYE PRN PRN 06/28/17 08/03/17 Drops] Saccharomyces Boulardii [Florastor] 250 mg PO BID #10 capsule 07/03/17 08/03/17 Potassium Chloride [Micro-K] 40 meq PO DAILY 08/03/17 08/03/17 Pramipexole Di-HCl [Mirapex] 0.25 mg PO TID 08/03/17 08/03/17 Tolterodine Tartrate [Tolterodine 2 mg PO 2100 08/03/17 08/03/17 Tartrate ER] - Allergies Allergies/Adverse Reactions: Allergies Allergy/AdvReac Type Severity Reaction Status Date / Time Penicillins Allergy Unknown Verified 08/03/17 10:43 shellfish derived Allergy Anaphylaxis Verified 08/03/17 10:43 - Social History Does the pt smoke?: No Smoking Status: Never smoker Does the pt drink ETOH?: No Does the pt have substance abuse?: No - Immunizations Immunizations are current?: Yes - POLST Patient has POLST: Yes PD ED PE NORMAL - Vitals Vital signs reviewed: Yes - General General: No: Alert and oriented X 3 (confused - per EMS not new) - HEENT HEENT: Atraumatic - Neck Neck: Supple, no meningeal sign - Cardiac Cardiac: RRR (tachy) - Respiratory Respiratory: Other (unlabored but gurgling cough) Results - Vitals Vitals: Vital Signs - 24 hr 08/03/17 08/03/17 08/03/17 10:25 12:02 13:01 Temperature 37.2 C Heart Rate 110 H 94 94 Respiratory 15 17 20 Rate Blood Pressure 141/85 H 122/60 117/66 O2 Saturation 93 93 93 Oxygen O2 Source Room air - EKG (time done) 1052 Rate: Rate (enter#) (102) Rhythm: Sinus tachycardia (very poor baseline but reg narrow complex with probable P waves in II) Ischemia: Non specific changes Other comments: Other comments (sig artifact) Computer interpretation: Disagree with computer - Labs Labs: Laboratory Tests 08/03/17 08/03/17 08/03/17 11:04 11:04 11:04 WBC 14.6 H RBC 4.09 L Hgb 12.4 Hct 36.5 L MCV 89.2 MCH 30.4 MCHC 34.0 RDW 13.8 Plt Count 289 MPV 7.5 L Neut # 13.1 H Lymph # 0.4 L [place] # 1.1 H Eos # 0.0 Baso # 0.0 Absolute Nucleated RBC 0.01 Nucleated RBC % 0.0 Sodium 135 Potassium 4.3 Chloride 96 L Carbon Dioxide 24 Anion Gap 12.0 BUN 21 H Creatinine 0.5 Estimated GFR (MDRD) 117 Glucose 132 H Lactic Acid 1.3 Calcium 9.6 - Rads (name of study) CXR Radiology: See rad report (new RLL pna) PD MEDICAL DECISION MAKING - ED course ED course: recurrent aspiration pna per not very cooperative with diet rec from last dc CURB 65 is 2 so inpt care is reasonable spoke to hospitalist at 145 PM pt not hypoxic but req she be on O2 so will give 2 L NC pt has a DNR from 2016 but states he does want antibiotics and even a vent as he feels this is a reversible condition, pt too confused to make her own decisions at this time Departure - Departure Disposition: 66 [facility] DC/Xfer Clinical Impression: Pneumonia Qualifiers: Pneumonia type: aspiration pneumonia Aspiration pneumonia type: unspecified Laterality: right Lung location: lower lobe of lung Qualified Code(s): J69.0 - Pneumonitis due to inhalation of food and vomit Condition: Serious
[2017-08-03 11:19] LABS: BASOPHILS % (AUTO) 0.1 %; HGB - HEMOGLOBIN 12.4 g/dL (12.0-16.0); LYMPHOCYTES # (AUTO) 0.4 10^3/uL (1.5-3.5); LYMPHOCYTES % (AUTO) 2.8 %; MEAN CORPUSCULAR HEMOGLOBIN 30.4 pg (27.0-31.0); MEAN CORPUSCULAR VOLUME 89.2 fL (81.0-99.0); MEAN PLATELET VOLUME 7.5 fL (7.9-10.8); MONOCYTES # (AUTO) 1.1 10^3/uL (0.0-1.0); MONOCYTES % (AUTO) 7.6 %; NEUTROPHILS # (AUTO) 13.1 10^3/uL (1.5-6.6); NEUTROPHILS % (AUTO) 89.5 %; PLT - PLATELET COUNT 289 10^3/uL (130-450); RED BLOOD COUNT 4.09 10^6/uL (4.20-5.40); RED CELL DISTRIBUTION WIDTH 13.8 % (12.0-15.0); WHITE BLOOD COUNT 14.6 x10^3/uL (4.8-10.8)
[2017-08-03 11:26] LABS: CALCIUM 9.6 mg/dL (8.5-10.3); CREATININE 0.5 mg/dL (0.4-1.0)
--- NOTE | 2017-08-03 12:25 | XRAY Preliminary Report ---
Exam: XR CHEST 2 VIEW PA/LAT IMPRESSION: 1. New right lower lobe airspace disease worrisome for pneumonia. [facility] SITE ID: [id number]
--- NOTE | 2017-08-03 12:27 | XRAY Report ---
EXAM: CHEST RADIOGRAPHY EXAM DATE: 08/03/2017 11:52 AM. CLINICAL HISTORY: Cough, shortness of air. Suspect pneumonia, perhaps aspiration. COMPARISON: Two-view chest x-ray 06/04/2017. TECHNIQUE: 2 views. FINDINGS: Lungs/Pleura: New medial right basilar opacity. No pneumothorax. No pleural effusion. Mediastinum: Heart and mediastinal contours are unremarkable. Other: Diffuse osteopenia. IMPRESSION: 1. New right lower lobe airspace disease worrisome for pneumonia. [facility] Referring Provider Line: [phone] SITE ID: [id number]
[2017-08-03] MEDS ORDERED: CLINDAMYCIN 600 MG/50 ML 50 ML IV ONE (13:04)
[2017-08-03] MEDS ORDERED: TEMAZEPAM 15 MG CAPSULE PO PRN (14:01)
[2017-08-03] MEDS ORDERED: SODIUM CHLORIDE FLUSH 0.9% 10 ML SYRINGE IVP PRN (14:01)
[2017-08-03] MEDS ORDERED: ACETAMINOPHEN 325 MG TABLET PO PRN (14:01)
[2017-08-03] MEDS ORDERED: PROCHLORPERAZINE 10 MG/2 ML VIAL IVP PRN (14:01)
--- NOTE | 2017-08-03 14:47 | HISTORY & PHYSICAL EXAMINATION ---
Chief Complaint - Chief Complaint Chief Complaint: Increased cough, dyspnea History of Present Illness - Admitted From Admitted From:: Home - History of Present Illness HPI Comment/Other: Mrs Juan Manuel Britt is a minimally responsive 86 yo white female with a history of advanced dementia, parkinsons disease, and aspiration, who lives with her elderly who is her caregiver. She is well known to the hospitalist service and there is a significant decline in the patient's level of consciousness from her baseline. History - Past Medical History Cardiovascular: reports: Deep vein thrombosis Respiratory: reports: COPD, Pneumonia, Shortness of breath Neuro: reports: Dementia, Parkinson's Endocrine/Autoimmune: reports: None GI: reports: Hepatitis : reports: Incontinence HEENT: reports: Other Psych: reports: Depression Musculoskeletal: reports: Osteoarthritis Derm: reports: Other Other Past Medical History: Dry Eye Syndrome, Adult failure to thrive, dysphagia - Past Surgical History HEENT: reports: Cataracts - Family & Social History Family History Comment/Other: Unable to obtain in this unresponsive 86 year old patient Living arrangement: At home Living Situation: With spouse/s.o. - Substance History Use: Uses substance without health or social issues: NONE - POLST Patient has POLST: Yes POLST Status: DNR Meds/Allgy - Home Medications Home Medications: Ambulatory Orders Medication Instructions Recorded Confirmed Hypromellose [Pure & Gentle Eye 1 drops EACHEYE PRN PRN 06/28/17 08/03/17 Drops] Saccharomyces Boulardii [Florastor] 250 mg PO BID #10 capsule 07/03/17 08/03/17 Potassium Chloride [Micro-K] 40 meq PO DAILY 08/03/17 08/03/17 Pramipexole Di-HCl [Mirapex] 0.25 mg PO TID 08/03/17 08/03/17 Tolterodine Tartrate [Tolterodine 2 mg PO 2100 08/03/17 08/03/17 Tartrate ER] - Allergies Allergies/Adverse Reactions: Allergies Allergy/AdvReac Type Severity Reaction Status Date / Time Penicillins Allergy Unknown Verified 08/03/17 10:43 shellfish derived Allergy Anaphylaxis Verified 08/03/17 10:43 Review of Systems - Respiratory Respiratory: reports: Cough, Sputum production (Decreased level of consciousness , all per pt's ) - Neurological Neurological: reports: Pre-existing deficit - All Other Systems All Other Systems: reports: Reviewed and negative (Pt unable to participate in ROS due to advanced dementia and decreased LOC) Exam - Vital Signs Reviewed Vital Signs: Yes Vital Signs: Vital Signs x48h Temp Pulse Resp BP Pulse Ox 08/03/17 14:22 91 16 122/70 93 08/03/17 13:01 94 20 117/66 93 08/03/17 12:02 94 17 122/60 93 08/03/17 10:25 37.2 C 110 H 15 141/85 H 93 - Physical Exam General Appearance: positive: No acute distress, Lethargic Eyes Bilateral: positive: Normal inspection, No lid inflammation, No scleral icterus ENT: positive: ENT inspection nml, Pharynx nml, Dry mucous membranes. negative : Purulent nasal drainage Neck: positive: Nml inspection, Thyroid nml, No JVD, Trachea midline. negative : Thyromegaly Respiratory: positive: Chest non-tender, No respiratory distress, Breath sounds nml Cardiovascular: positive: Regular rate & rhythm, No murmur, No gallop. negative : Extrasystoles Peripheral Pulses: positive: 0 Abdomen: positive: No organomegaly. negative: Guarding, Rebound, Hepatomegaly, Splenomegaly Back: positive: Nml inspection. negative: CVA tenderness (R), CVA tenderness (L ) Skin: positive: Dry, Pallor. negative: Cyanosis, Skin rash Extremities: positive: Non-tender, Nml appearance, No pedal edema, Other ( Marked muscle wasting) Neurologic/Psychiatric: positive: Other (minimally responsive) Conclusion/Plan - Problem List (1) Aspiration pneumonia Conclusion/Plan: The patient has had a significant decrease in her LOC, will admit to med/surg, continue with fluids and IV abx, and monitor. Pt is expected to continue to have aspiration events due to her advanced parkinsons disease and dementia, and has been placed on aspiration precautions. Qualifiers: Laterality: right Lung location: lower lobe of lung Qualified Code(s): J69.0 - Pneumonitis due to inhalation of food and vomit (2) Parkinsons disease Conclusion/Plan: Continue home medications (3) Cachexia Conclusion/Plan: Presumably a direct consequence of the pt's dysphagia, expected to continue and increase in frequency - Lab Results Lab results reviewed: Yes Fish Bones: 08/03/17 11:04 08/03/17 11:04 - Diagnostic Imaging Results Diagnostic Imaging Results Comments: New right lower lobe airspace disease worrisome for pneumonia Issues/Core Measures - Anticipated LOS Anticipated Stay Length: Less than 2 midnights - [facility] Requirement for [facility] I expect patient to be DC'd or transferred within 96 hours.: Yes - DVT/VTE - Prophylaxis VTE/DVT Device ordered at admit?: Yes
[2017-08-03] MEDS ORDERED: POTASSIUM CHLORIDE INJ 20 MEQ in DEXTROSE 5%-0.45% NACL 1,000 ML IV SCH (15:00)
[2017-08-03] MEDS: D5.45NS W/20 MEQ KCL 1,000 ML IV SCH (15:47)
[2017-08-03] MEDS ORDERED: [UNRECOGNIZED DRUG - MIXTURE] IV SCH (16:00)
[2017-08-03] MEDS: SACCHAROMYCES BOULARDII 250 MG CAPSULE PO SCH (21:50)
[2017-08-03] MEDS: FAMOTIDINE 20 MG/50 ML 50 ML IV SCH (21:56)
[2017-08-03] MEDS ORDERED: levoFLOXacin 250 MG TABLET PO SCH (22:00)
[2017-08-03] MEDS: SODIUM CHLORIDE FLUSH 0.9% 10 ML SYRINGE IVP SCH (22:09)
[2017-08-03] MEDS: CLINDAMYCIN 600 MG/50 ML 50 ML IV SCH (22:24)
[2017-08-04] MEDS: CLINDAMYCIN 600 MG/50 ML 50 ML IV SCH ×4 (03:55→21:15)
[2017-08-04 05:30] LABS: BASOPHILS # (AUTO) 0.2 10^3/uL (0.0-0.1); BASOPHILS % (AUTO) 1.1 %; HGB - HEMOGLOBIN 11.5 g/dL (12.0-16.0); LYMPHOCYTES # (AUTO) 0.2 10^3/uL (1.5-3.5); MEAN CORPUSCULAR HEMOGLOBIN 30.5 pg (27.0-31.0); MEAN CORPUSCULAR HGB CONC 33.8 g/dL (32.0-36.0); MEAN CORPUSCULAR VOLUME 90.1 fL (81.0-99.0); MEAN PLATELET VOLUME 7.4 fL (7.9-10.8); MONOCYTES # (AUTO) 0.9 10^3/uL (0.0-1.0); MONOCYTES % (AUTO) 5.5 %; NEUTROPHILS # (AUTO) 14.6 10^3/uL (1.5-6.6); NEUTROPHILS % (AUTO) 92.4 %; PLT - PLATELET COUNT 280 10^3/uL (130-450); RED BLOOD COUNT 3.77 10^6/uL (4.20-5.40); RED CELL DISTRIBUTION WIDTH 14.2 % (12.0-15.0); WHITE BLOOD COUNT 15.8 x10^3/uL (4.8-10.8)
[2017-08-04 05:33] LABS: CALCIUM 8.6 mg/dL (8.5-10.3); CREATININE 0.4 mg/dL (0.4-1.0)
[2017-08-04] MEDS: D5.45NS W/20 MEQ KCL 1,000 ML IV SCH ×2 (06:47→20:58)
[2017-08-04] MEDS: PRAMIPEXOLE 0.25 MG TABLET PO SCH ×3 (06:47→21:05)
[2017-08-04] MEDS: SODIUM CHLORIDE FLUSH 0.9% 10 ML SYRINGE IVP SCH ×3 (06:49→21:15)
[2017-08-04] MEDS: FAMOTIDINE 20 MG/50 ML 50 ML IV SCH ×2 (08:15→20:59)
[2017-08-04] MEDS: SACCHAROMYCES BOULARDII 250 MG CAPSULE PO SCH ×2 (08:15→21:05)
[2017-08-04] MEDS: POLYETHYLENE GLYCOL 3350 17 GM PACKET PO SCH (08:15)
--- NOTE | 2017-08-04 09:53 | XRAY Preliminary Report ---
Exam: XR CHEST 2 VIEW PA/LAT IMPRESSION: 1. Interval worsening of aspiration pneumonitis or pneumonia with new scattered small consolidations in the left lung base and the more lateral aspect of right lung base in addition to the consolidation in the medial right lung base. 2. Small left pleural effusion. 3. COPD with hyperinflation and emphysema. 4. No congestive heart failure. [facility] SITE ID: [id number]
--- NOTE | 2017-08-04 09:55 | XRAY Report ---
EXAM: CHEST RADIOGRAPHY EXAM DATE: 08/04/2017 08:59 AM. CLINICAL HISTORY: F/u aspiration pneumonia. COMPARISON: CHEST RADIOGRAPHY 08/03/2017. TECHNIQUE: 2 views. FINDINGS: Lungs/Pleura: Interval worsening with new scattered small consolidations in the left lung base and th e more lateral aspect of right lung base. Small left pleural effusion. No pneumothorax. COPD with hyp erinflation and emphysema. No vascular congestion. Mediastinum: Heart and mediastinal contours are unremarkable. Other: None. IMPRESSION: 1. Interval worsening of aspiration pneumonitis or pneumonia with new scattered small consolidations in the left lung base and the more lateral aspect of right lung base in addition to the consolidation in the medial right lung base. 2. Small left pleural effusion. 3. COPD with hyperinflation and emphysema. 4. No congestive heart failure. [facility] Referring Provider Line: [phone] SITE ID: [id number]
[2017-08-04] MEDS ORDERED: MINERAL OIL/PETROLAT OPHTH OINT EACHEYE PRN (12:08)
[2017-08-04] MEDS: CARBOXYMETHYLCELLULOSE OPHTH DROPS EACHEYE PRN (12:23)
--- NOTE | 2017-08-04 18:03 | PROVIDER PROGRESS NOTE ---
Assessment/Plan - Problem List (1) Aspiration pneumonia Qualifiers: Laterality: right Lung location: lower lobe of lung Assessment/Plan: Pt has comfortable resp satatus. Continue antibiotics. She only takes bites of food. Will order swallowing eval due to aspiration pneumonia and cachexia (2) Parkinsons disease Assessment/Plan: Carbidopa/Levodopa not yet restarted as poor po intake. (3) Dementia Qualifiers: Qualified Code(s): F03.90 - Unspecified dementia without behavioral disturbance Assessment/Plan: No family was here today for me to have a meeting about her baseline and what our goal of therapy should be - Current Meds Current Meds: Current Medications Generic Name Dose Route Start Last Admin Trade Name Freq PRN Reason Stop Dose Admin Carboxymethylcellulose 1 drops 08/03/17 15:03 08/04/17 12:23 Refresh 1% Ophth Drops EACHEYE 1 drops Q4HR PRN Administration Dry Eye Famotidine 50 mls @ 100 mls/hr 08/03/17 21:00 08/04/17 08:45 Pepcid 20 Mg/50 Ml IV Infused BID ELVIRA Infusion Potassium Chloride/Dextrose/Sod Cl 1,000 mls @ 75 mls/hr 08/03/17 16:00 08/04 06:47 D5.45ns W/20 Meq Kcl IV 75 mls/hr .[id number] ELVIRA Administration Clindamycin Phosphate 50 mls @ 100 mls/hr 08/03/17 22:00 08/04/17 16:30 Cleocin 600 Mg/50 Ml IV Infused Q6H ELVIRA Infusion Polyethylene Glycol 17 gm 08/04/17 09:00 08/04/17 08:15 Miralax PO 17 gm DAILY ELVIRA Administration Pramipexole Dihydrochloride 0.25 mg 08/04/17 06:00 08/04/17 14:29 Mirapex PO 0.25 mg TID ELVIRA Administration Saccharomyces Boulardii 250 mg 08/03/17 21:00 08/04/17 08:15 Florastor PO 250 mg BID ELVIRA Administration Sodium Chloride 10 ml 08/03/17 14:01 08/03/17 15:47 Normal Saline Flush 0.9% IVP 10 ml PRN PRN Administration NEEDED PER PROVIDER ORDERS Sodium Chloride 10 ml 08/03/17 22:00 08/04/17 14:07 Normal Saline Flush 0.9% IVP Not Given Q8HR ELVIRA - Lab Result Fish Bone Diagrams: 08/04/17 04:50 08/04/17 04:50 Subjective - Subjective Patient Reports: Resting Comfortably Nursing Reports: No Complaints, Other (No family available in room to talk to) Objective Vital Signs: Vital Signs - 24 hr 08/04/17 08/04/17 08/04/17 00:55 14:00 15:50 Temperature 37.2 C 36.9 C 36.4 C L Heart Rate [ 90 84 85 Brachial] Respiratory 16 20 18 Rate Blood Pressure 106/58 L 111/65 109/68 [Right Brachial artery] O2 Saturation 92 93 97 Oxygen O2 Source Room air I&O (Last 24 Hrs): Intake and Output Totals x24h 08/02/17 08/03/17 08/04/17 23:59 23:59 23:59 Intake Total 250 1300.00 Balance 250 1300.00 - Results Results: Laboratory Results WBC 15.8 x10^3/uL (4.8-10.8) H 08/04/17 04:50 RBC 3.77 10^6/uL (4.20-5.40) L 08/04/17 04:50 Hgb 11.5 g/dL (12.0-16.0) L 08/04/17 04:50 Hct 33.9 % (37.0-47.0) L 08/04/17 04:50 MCV 90.1 fL (81.0-99.0) 08/04/17 04:50 MCH 30.5 pg (27.0-31.0) 08/04/17 04:50 MCHC 33.8 g/dL (32.0-36.0) 08/04/17 04:50 RDW 14.2 % (12.0-15.0) 08/04/17 04:50 Plt Count 280 10^3/uL (130-450) 08/04/17 04:50 MPV 7.4 fL (7.9-10.8) L 08/04/17 04:50 Neut # 14.6 10^3/uL (1.5-6.6) H 08/04/17 04:50 Lymph # 0.2 10^3/uL (1.5-3.5) L 08/04/17 04:50 [place] # 0.9 10^3/uL (0.0-1.0) 08/04/17 04:50 Eos # 0.0 10^3/uL (0.0-0.7) 08/04/17 04:50 Baso # 0.2 10^3/uL (0.0-0.1) H 08/04/17 04:50 Absolute Nucleated RBC 0.01 x10^3/uL 08/04/17 04:50 Nucleated RBC % 0.0 /100WBC 08/04/17 04:50 Sodium 132 mmol/L (135-145) L 08/04/17 04:50 Potassium 4.3 mmol/L (3.5-5.0) 08/04/17 04:50 Chloride 99 mmol/L (101-111) L 08/04/17 04:50 Carbon Dioxide 24 mmol/L (21-32) 08/04/17 04:50 Anion Gap 9.0 (6-13) 08/04/17 04:50 BUN 20 mg/dL (6-20) 08/04/17 04:50 Creatinine 0.4 mg/dL (0.4-1.0) 08/04/17 04:50 Estimated GFR (MDRD) 152 (>89) 08/04/17 04:50 Glucose 186 mg/dL (70-100) H 08/04/17 04:50 Lactic Acid 1.3 mmol/L (0.5-2.2) 08/03/17 11:04 Calcium 8.6 mg/dL (8.5-10.3) 08/04/17 04:50
[2017-08-04] MEDS ORDERED: levoFLOXacin 250 MG TABLET PO SCH (21:00)
[2017-08-05] MEDS: CLINDAMYCIN 600 MG/50 ML 50 ML IV SCH ×4 (04:09→21:24)
[2017-08-05 05:44] LABS: BASOPHILS % (AUTO) 0.3 %; EOSINOPHILS % (AUTO) 0.3 %; HGB - HEMOGLOBIN 9.7 g/dL (12.0-16.0); LYMPHOCYTES # (AUTO) 0.5 10^3/uL (1.5-3.5); LYMPHOCYTES % (AUTO) 5.6 %; MEAN CORPUSCULAR HEMOGLOBIN 30.6 pg (27.0-31.0); MEAN CORPUSCULAR HGB CONC 33.8 g/dL (32.0-36.0); MEAN CORPUSCULAR VOLUME 90.4 fL (81.0-99.0); MEAN PLATELET VOLUME 7.4 fL (7.9-10.8); MONOCYTES # (AUTO) 0.9 10^3/uL (0.0-1.0); MONOCYTES % (AUTO) 9.1 %; NEUTROPHILS # (AUTO) 8.3 10^3/uL (1.5-6.6); NEUTROPHILS % (AUTO) 84.7 %; PLT - PLATELET COUNT 244 10^3/uL (130-450); RED BLOOD COUNT 3.17 10^6/uL (4.20-5.40); RED CELL DISTRIBUTION WIDTH 13.8 % (12.0-15.0); WHITE BLOOD COUNT 9.8 x10^3/uL (4.8-10.8)
[2017-08-05 06:09] LABS: CALCIUM 8.1 mg/dL (8.5-10.3); CREATININE 0.4 mg/dL (0.4-1.0)
[2017-08-05] MEDS: SODIUM CHLORIDE FLUSH 0.9% 10 ML SYRINGE IVP SCH ×3 (06:44→19:55)
[2017-08-05] MEDS: PRAMIPEXOLE 0.25 MG TABLET PO SCH ×3 (06:51→21:24)
[2017-08-05] MEDS: FAMOTIDINE 20 MG/50 ML 50 ML IV SCH ×2 (10:18→20:32)
[2017-08-05] MEDS: SACCHAROMYCES BOULARDII 250 MG CAPSULE PO SCH ×2 (10:21→21:24)
[2017-08-05] MEDS: POLYETHYLENE GLYCOL 3350 17 GM PACKET PO SCH (10:50)
--- NOTE | 2017-08-05 12:56 | PROVIDER PROGRESS NOTE ---
Assessment/Plan - Problem List (1) Aspiration pneumonia Qualifiers: Laterality: right Lung location: lower lobe of lung Assessment/Plan: CXR yesterday (after hydration) showed worsening pneumonia. Will change po hs Levaquin to iv Levaquin daily and continue iv Clindamycin ( which covers mouth anaerobes) Await culture results, which are thus far neg The confirms that he sees her aspirate. He prepares her meals and they are all soft, pureed food. (2) Parkinsons disease Assessment/Plan: The tells me that she is usually stiff and has very little tremors or shakiness. Apparently one of her meds was increased recently and that has made her more somnolent. She is usually only able to stand out of bed with assistance to pivot to a bedside commode. When she gets fatigued to the point of not being able to maintain her posture, he knows she is getting sick and needs hospitalization. (3) Dementia Assessment/Plan: The states that she has a good memory, but only mumbles to speak. She is on no meds for dementia, therefore her speech and inactivity may be from the Parkinson's disease. (4) Cachexia Assessment/Plan: Very poor calorie intake since here. I discussed this with her and he claims that she does this when she is ill, then by day 5 her appetite returns. A nutrition eval will be ordered. - Current Meds Current Meds: Current Medications Generic Name Dose Route Start Last Admin Trade Name Freq PRN Reason Stop Dose Admin Carboxymethylcellulose 1 drops 08/03/17 15:03 08/04/17 12:23 Refresh 1% Ophth Drops EACHEYE 1 drops Q4HR PRN Administration Dry Eye Famotidine 50 mls @ 100 mls/hr 08/03/17 21:00 08/05/17 10:51 Pepcid 20 Mg/50 Ml IV Infused BID ELVIRA Infusion Clindamycin Phosphate 50 mls @ 100 mls/hr 08/03/17 22:00 08/05/17 11:20 Cleocin 600 Mg/50 Ml IV Infused Q6H ELVIRA Infusion Polyethylene Glycol 17 gm 08/04/17 09:00 08/05/17 10:50 Miralax PO Not Given DAILY ELVIRA Pramipexole Dihydrochloride 0.25 mg 08/04/17 06:00 08/05/17 06:51 Mirapex PO 0.25 mg TID ELVIRA Administration Saccharomyces Boulardii 250 mg 08/03/17 21:00 08/05/17 10:21 Florastor PO 250 mg BID ELVIRA Administration Sodium Chloride 10 ml 08/03/17 14:01 08/03/17 15:47 Normal Saline Flush 0.9% IVP 10 ml PRN PRN Administration NEEDED PER PROVIDER ORDERS Sodium Chloride 10 ml 08/03/17 22:00 08/05/17 06:44 Normal Saline Flush 0.9% IVP Not Given Q8HR ELVIRA - Lab Result Fish Bone Diagrams: 08/05/17 05:31 08/05/17 05:31 - Additional Planning My Orders: My Active Orders 08/05/17 13:00 D5ns W/20 Meq KCl 1,000 ml IV 83.333 mls/hr Levofloxacin/D5W 750 mg/150 mL q24h levoFLOXacin 750 MG/150 ML [Levaquin 750 mg/ 150 ml] 750 mg in 150 ml IV Q24H Subjective - Subjective Patient Reports: Resting Comfortably, No Complaints Nursing Reports: Other (Only bites of food Speech Therapist has done previous swallowing evals and Pt does have aspiration risk) Objective Vital Signs: Vital Signs - 24 hr 08/04/17 08/04/17 08/05/17 14:00 15:50 00:06 Temperature 36.9 C 36.4 C L 36.6 C Heart Rate [ 84 85 94 Brachial] Respiratory 20 18 16 Rate Blood Pressure 111/65 109/68 100/58 L [Right Brachial artery] O2 Saturation 93 97 94 08/05/17 07:43 Temperature 37.2 C Heart Rate [ 81 Brachial] Respiratory 18 Rate Blood Pressure 107/62 [Right Brachial artery] O2 Saturation 97 Oxygen O2 Source Room air I&O (Last 24 Hrs): Intake and Output Totals x24h 08/03/17 08/04/17 08/05/17 23:59 23:59 23:59 Intake Total 250 2450.00 270 Output Total 250 Balance 250 2200.00 270 General: Other (Somnolent) HEENT: Mucous membr. moist/pink Neck: No JVD Neuro: Other (Obtunded) Cardiovascular: Regular rate Respiratory: No respiratory distress Abdomen: Soft Extremities: No edema - Results Results: Laboratory Results WBC 9.8 x10^3/uL (4.8-10.8) 08/05/17 05:31 RBC 3.17 10^6/uL (4.20-5.40) L 08/05/17 05:31 Hgb 9.7 g/dL (12.0-16.0) L 08/05/17 05:31 Hct 28.7 % (37.0-47.0) L 08/05/17 05:31 MCV 90.4 fL (81.0-99.0) 08/05/17 05:31 MCH 30.6 pg (27.0-31.0) 08/05/17 05:31 MCHC 33.8 g/dL (32.0-36.0) 08/05/17 05:31 RDW 13.8 % (12.0-15.0) 08/05/17 05:31 Plt Count 244 10^3/uL (130-450) 08/05/17 05:31 MPV 7.4 fL (7.9-10.8) L 08/05/17 05:31 Neut # 8.3 10^3/uL (1.5-6.6) H 08/05/17 05:31 Lymph # 0.5 10^3/uL (1.5-3.5) L 08/05/17 05:31 [place] # 0.9 10^3/uL (0.0-1.0) 08/05/17 05:31 Eos # 0.0 10^3/uL (0.0-0.7) 08/05/17 05:31 Baso # 0.0 10^3/uL (0.0-0.1) 08/05/17 05:31 Absolute Nucleated RBC 0.00 x10^3/uL 08/05/17 05:31 Nucleated RBC % 0.0 /100WBC 08/05/17 05:31 Sodium 133 mmol/L (135-145) L 08/05/17 05:31 Potassium 4.6 mmol/L (3.5-5.0) 08/05/17 05:31 Chloride 103 mmol/L (101-111) 08/05/17 05:31 Carbon Dioxide 26 mmol/L (21-32) 08/05/17 05:31 Anion Gap 4.0 (6-13) L 08/05/17 05:31 BUN 17 mg/dL (6-20) 08/05/17 05:31 Creatinine 0.4 mg/dL (0.4-1.0) 08/05/17 05:31 Estimated GFR (MDRD) 152 (>89) 08/05/17 05:31 Glucose 124 mg/dL (70-100) H 08/05/17 05:31 Lactic Acid 1.3 mmol/L (0.5-2.2) 08/03/17 11:04 Calcium 8.1 mg/dL (8.5-10.3) L 08/05/17 05:31
[2017-08-05] MEDS ORDERED: levoFLOXacin 750 MG/150 ML 750 MG/150 ML BAG IV SCH (13:00)
[2017-08-05] MEDS: D5NS W/20 MEQ KCL 1,000 ML IV SCH (13:13)
--- NOTE | 2017-08-05 16:41 | ADVANCE CARE PLANNING NOTE ---
Advance Care Planning - Date/Time Date: 08/05/17 Time: 13:40 - Purpose of encounter Text: Determination of goals from , care provider and POA. The pt lives at home. Perhaps she now needs higher level of care (NH placement) - Parties in attendance Parties in attendance: Pt in bed, at bedside and myself. - Decisional capacity Decisional capacity of: The does all of the speaking. He says that the Pt only mumbles and is stiff, due to her Parkinson's disease, but that she has her memory and can make decisions when she is not "sick". - Subjective/Patient's story Subjective/Patient's story: The patient requires 100% care from her caregiver, . She has Parkinson' s and has had aspiration pneumonias in the past. He makes her entire diet with pured food and he food-processes any solid food into a pure. She normally is able to maintain her posture when he pulls her up out of bed and he pivots her from bed to a bedside commode or wheelchair. She eats all of her food in the upright position sitting up. He recently witnessed her aspirating and then a cough began and she became more lethargic and obtunded and was unable to be helped out of bed and pivot to a chair, so he brought her to the emergency. She has been diagnosed with an aspiration pneumonia here once again. She has been very obtunded since admission. She only takes bites of her pured diet here. During her last admission with aspiration pneumonia, the patient reports getting a total hospital bill of $25,000 of which he will have to pay 8-10,000. He thinks that after 5 days of admission that time and this time he will be able to determine if there is no big improvement, whether she needs placement to a halfway. During her last admission with aspiration pneumonia, the reports getting her total hospital bill of $25,000 of which he will have to pay $8-10,000. He thinks that after 5 days of admission that time and this time he will be able to determine, if there is no big improvement, whether she needs placement to a halfway or more help with caregiving in the house. Currently he has help from an agency that provides a caregiver who comes twice a week. - Objective/Medical story Objective/Medical Story: The patient is cachectic, she currently has dry oral mucosa and is dehydrated and has very poor overall calorie intake. Nutrition consult has been ordered. The patient does have aspiration pneumonias and has witnessed aspiration of food. A swallowing evaluation by the speech therapist here has revealed that she requires a pured diet and her handling of liquids will be reassessed at this admission. All of her antibiotics are currently administered by iv. - Goals of Care Goals of care determinations: The was able to open her eyes and look in the direction of my spoken voice and answered by nodding and with a one-word answer. She agrees with her who told me that the plan is to get her home with the same type of care at home as described above. He is willing to provide her this care and wants her home. - Plan Plan: The plan will be to complete an IV course of antibiotics, switch to p.o. antibiotics if needed, improve her calorie intake and hydration by mouth and then assess for the exact type of care that needs to be provided: PT at an SNF versus discharge home with home health aides. - Code Status Code Status: Do Not Attempt Resuscitation - Time Spent on Advance Care Planning Time spent on advance care plannin min
[2017-08-05] MEDS ORDERED: MIN OIL/DIMETHICON/COCONUT OIL 92 GM TUBE TOP PRN (22:28)
[2017-08-05] MEDS ORDERED: MIN OIL/DIMETHICON/COCONUT OIL 92 GM TUBE TOP ONE (22:37)
[2017-08-06] MEDS: D5NS W/20 MEQ KCL 1,000 ML IV SCH ×2 (01:46→16:14)
[2017-08-06] MEDS: CLINDAMYCIN 600 MG/50 ML 50 ML IV SCH ×4 (04:10→22:25)
[2017-08-06 05:24] LABS: BASOPHILS % (AUTO) 0.4 %; EOSINOPHILS # (AUTO) 0.1 10^3/uL (0.0-0.7); HGB - HEMOGLOBIN 10.3 g/dL (12.0-16.0); LYMPHOCYTES # (AUTO) 0.5 10^3/uL (1.5-3.5); LYMPHOCYTES % (AUTO) 6.1 %; MEAN CORPUSCULAR HEMOGLOBIN 30.1 pg (27.0-31.0); MEAN CORPUSCULAR HGB CONC 33.5 g/dL (32.0-36.0); MEAN CORPUSCULAR VOLUME 89.9 fL (81.0-99.0); MEAN PLATELET VOLUME 7.3 fL (7.9-10.8); MONOCYTES # (AUTO) 0.8 10^3/uL (0.0-1.0); MONOCYTES % (AUTO) 10.2 %; NEUTROPHILS # (AUTO) 6.5 10^3/uL (1.5-6.6); NEUTROPHILS % (AUTO) 82.3 %; PLT - PLATELET COUNT 287 10^3/uL (130-450); RED BLOOD COUNT 3.41 10^6/uL (4.20-5.40); RED CELL DISTRIBUTION WIDTH 13.8 % (12.0-15.0); WHITE BLOOD COUNT 7.9 x10^3/uL (4.8-10.8)
[2017-08-06 05:30] LABS: CALCIUM 8.6 mg/dL (8.5-10.3); CREATININE 0.4 mg/dL (0.4-1.0)
[2017-08-06] MEDS: PRAMIPEXOLE 0.25 MG TABLET PO SCH ×3 (06:39→20:33)
[2017-08-06] MEDS: SODIUM CHLORIDE FLUSH 0.9% 10 ML SYRINGE IVP SCH ×3 (06:40→22:25)
[2017-08-06] MEDS: FAMOTIDINE 20 MG/50 ML 50 ML IV SCH ×2 (09:21→20:33)
[2017-08-06] MEDS: SACCHAROMYCES BOULARDII 250 MG CAPSULE PO SCH ×2 (10:59→20:33)
[2017-08-06] MEDS: DRONABINOL 2.5 MG CAPSULE PO SCH ×2 (11:00→16:14)
[2017-08-06] MEDS: POLYETHYLENE GLYCOL 3350 17 GM PACKET PO SCH (11:06)
[2017-08-06] MEDS ORDERED: DIATR MEGLU/DIATRIZOATE SODIUM 120 ML BOTTLE PO ONE (15:17)
[2017-08-06] MEDS ORDERED: SCOPOLAMINE PATCH TOP SCH (17:00)
--- NOTE | 2017-08-06 17:03 | PROVIDER PROGRESS NOTE ---
Assessment/Plan - Problem List (1) Cachexia Assessment/Plan: There are nearly no calories being consumed by Pt. I discussed the option of Dobhoff feeding tube (which is not wanted per POLST signed in 2016) or PEG tube to allow for more calorie intake and nutrition to allow healing. The and jerryhter discussed this with Pt and all 3 are agreeable to change the POLST and allow feeding tube. Dobhoff tube ordered and was inserted successfully. Dobhoff feeds have been ordered by Certified Nursing Assistant Instructor. Check Mg, pre-albumen, PO4 and CMP. (2) Aspiration pneumonia Qualifiers: Laterality: right Lung location: lower lobe of lung Assessment/Plan: Continue antibiotics. (3) Parkinsons disease Assessment/Plan: Continue meds. (4) Dementia Assessment/Plan: This diagnosis will be removed, as says she has no dementia - Current Meds Current Meds: Current Medications Generic Name Dose Route Start Last Admin Trade Name Freq PRN Reason Stop Dose Admin Carboxymethylcellulose 1 drops 08/03/17 15:03 08/04/17 12:23 Refresh 1% Ophth Drops EACHEYE 1 drops Q4HR PRN Administration Dry Eye Dronabinol 2.5 mg 08/06/17 11:00 08/06/17 16:14 Marinol PO 2.5 mg BIDAC ELVIRA Administration Famotidine 50 mls @ 100 mls/hr 08/03/17 21:00 08/06/17 09:55 Pepcid 20 Mg/50 Ml IV Infused BID ELVIRA Infusion Clindamycin Phosphate 50 mls @ 100 mls/hr 08/03/17 22:00 08/06/17 16:14 Cleocin 600 Mg/50 Ml IV 100 mls/hr Q6H ELVIRA Administration Potassium Chloride/Dextrose/Sod Cl 1,000 mls @ 83.333 mls/hr 08/05/17 13:00 08/06/17 16:14 IV 83.333 mls/hr .Q12H ELVIRA Administration Polyethylene Glycol 17 gm 08/04/17 09:00 08/06/17 11:06 Miralax PO Not Given DAILY ELVIRA Pramipexole Dihydrochloride 0.25 mg 08/04/17 06:00 08/06/17 14:14 Mirapex PO 0.25 mg TID ELVIRA Administration Saccharomyces Boulardii 250 mg 08/03/17 21:00 08/06/17 10:59 Florastor PO 250 mg BID ELVIRA Administration Sodium Chloride 10 ml 08/03/17 14:01 08/03/17 15:47 Normal Saline Flush 0.9% IVP 10 ml PRN PRN Administration NEEDED PER PROVIDER ORDERS Sodium Chloride 10 ml 08/03/17 22:00 08/06/17 14:25 Normal Saline Flush 0.9% IVP Not Given Q8HR ELVIRA - Lab Result Fish Bone Diagrams: 08/06/17 05:06 08/06/17 05:06 - Additional Planning My Orders: My Active Orders 08/05/17 22:28 Min Oil/Dimeth/Coconut Oil Crm [Cavilon] 1 applic TOP PRN PRN 08/06/17 11:00 Dronabinol [Marinol] 2.5 mg PO BIDAC 08/06/17 14:45 Feeding Tube Placement [FL] Routine 08/06/17 15:45 Tube Feeding [RC] QSHIFT 08/06/17 17:00 Scopolamine Patch [Transderm-Scop] 1 patch TOP Q3D 08/07/17 05:00 CMP [COMPREHENSIVE METABOLIC PANEL] [CHEM] Routine MAGNESIUM [CHEM] Routine PHOSPHORUS [CHEM] Routine PREALBUMIN [CHEM] Routine 08/07/17 13:00 levoFLOXacin 500 MG/100 ML [Levaquin 500 mg/100 ml] 500 mg in 100 ml IV Q48H Subjective - Subjective Patient Reports: Resting Comfortably Nursing Reports: Other (Excessive secretions that she cannot clear Pt too weak to feed herself Daughter could only get her to eat 4 spoonfuls of pureed diet) Objective Vital Signs: Vital Signs - 24 hr 08/05/17 08/06/17 08/06/17 23:46 09:55 15:44 Temperature 36.5 C 36.6 C 37.2 C Heart Rate [ 81 78 87 Brachial] Respiratory 20 18 16 Rate Blood Pressure 129/75 125/72 143/75 H [Right Brachial artery] O2 Saturation 97 98 96 Oxygen O2 Source Room air I&O (Last 24 Hrs): Intake and Output Totals x24h 08/04/17 08/05/17 08/06/17 23:59 23:59 23:59 Intake Total 2450.00 1670 2150 Output Total 250 350 Balance 2200.00 1670 1800 General: Other (Somnolent, mouth breathing) HEENT: Other (Dry oral mucosa) Neck: Supple Neuro: Other (Only answers with 1 word answers) Cardiovascular: Regular rate Respiratory: No respiratory distress Abdomen: Soft Extremities: No edema - Results Results: Laboratory Results WBC 7.9 x10^3/uL (4.8-10.8) 08/06/17 05:06 RBC 3.41 10^6/uL (4.20-5.40) L 08/06/17 05:06 Hgb 10.3 g/dL (12.0-16.0) L 08/06/17 05:06 Hct 30.6 % (37.0-47.0) L 08/06/17 05:06 MCV 89.9 fL (81.0-99.0) 08/06/17 05:06 MCH 30.1 pg (27.0-31.0) 08/06/17 05:06 MCHC 33.5 g/dL (32.0-36.0) 08/06/17 05:06 RDW 13.8 % (12.0-15.0) 08/06/17 05:06 Plt Count 287 10^3/uL (130-450) 08/06/17 05:06 MPV 7.3 fL (7.9-10.8) L 08/06/17 05:06 Neut # 6.5 10^3/uL (1.5-6.6) 08/06/17 05:06 Lymph # 0.5 10^3/uL (1.5-3.5) L 08/06/17 05:06 [place] # 0.8 10^3/uL (0.0-1.0) 08/06/17 05:06 Eos # 0.1 10^3/uL (0.0-0.7) 08/06/17 05:06 Baso # 0.0 10^3/uL (0.0-0.1) 08/06/17 05:06 Absolute Nucleated RBC 0.00 x10^3/uL 08/06/17 05:06 Nucleated RBC % 0.0 /100WBC 08/06/17 05:06 Sodium 136 mmol/L (135-145) 08/06/17 05:06 Potassium 4.2 mmol/L (3.5-5.0) 08/06/17 05:06 Chloride 102 mmol/L (101-111) 08/06/17 05:06 Carbon Dioxide 25 mmol/L (21-32) 08/06/17 05:06 Anion Gap 9.0 (6-13) 08/06/17 05:06 BUN 6 mg/dL (6-20) 08/06/17 05:06 Creatinine 0.4 mg/dL (0.4-1.0) 08/06/17 05:06 Estimated GFR (MDRD) 152 (>89) 08/06/17 05:06 Glucose 132 mg/dL (70-100) H 08/06/17 05:06 Lactic Acid 1.3 mmol/L (0.5-2.2) 08/03/17 11:04 Calcium 8.6 mg/dL (8.5-10.3) 08/06/17 05:06
[2017-08-07] MEDS: CLINDAMYCIN 600 MG/50 ML 50 ML IV SCH ×4 (04:06→21:49)
[2017-08-07] MEDS: PRAMIPEXOLE 0.25 MG TABLET PO SCH ×3 (05:40→21:49)
[2017-08-07] MEDS: SODIUM CHLORIDE FLUSH 0.9% 10 ML SYRINGE IVP SCH ×3 (05:41→21:49)
[2017-08-07] MEDS: D5NS W/20 MEQ KCL 1,000 ML IV SCH ×2 (05:54→14:46)
[2017-08-07] MEDS: DRONABINOL 2.5 MG CAPSULE PO SCH ×2 (06:28→16:16)
[2017-08-07 06:37] LABS: ALBUMIN 2.5 g/dL (3.2-5.5); ALBUMIN/GLOBULIN RATIO 0.7 (1.0-2.2); ALKALINE PHOSPHATASE 47 IU/L (42-121); ALT ALANINE AMINOTRANSFERASE 11 IU/L (10-60); AST ASPARTATE AMINOTRANSFERASE 19 IU/L (10-42); BILIRUBIN,TOTAL 0.3 mg/dL (0.2-1.0); BUN - BLOOD UREA NITROGEN < 5 mg/dL (6-20); CALCIUM 8.1 mg/dL (8.5-10.3); CARBON DIOXIDE - CO2 25 mmol/L (21-32); CHLORIDE 103 mmol/L (101-111); CREATININE 0.3 mg/dL (0.4-1.0); GFR - MDRD 211 (>89); GLUCOSE 136 mg/dL (70-100); MAGNESIUM 1.6 mg/dL (1.7-2.8); PHOSPHORUS 2.6 mg/dL (2.5-4.6); PREALBUMIN 8 mg/dL (18-45); SODIUM 134 mmol/L (135-145); TOTAL PROTEIN 6.2 g/dL (6.7-8.2)
--- NOTE | 2017-08-07 07:51 | XRAY Report ---
FLUOROSCOPICALLY-GUIDED FEEDING TUBE PLACEMENT: 08/06/2017 CLINICAL INDICATION: Aspiration risk. A weighted feeding tube was inserted through the patient's right nostril, through the esophagus, through the stomach, and placed into the duodenum. Gastrografin 10 mL was injected to confirm positioning. The patient tolerated the procedure well. The tube was flushed, and the patient was returned to the floor in stable condition. IMPRESSION: Successful placement of a post-pyloric feeding tube under fluoroscopy. FLUOROSCOPY TIME: Three minutes 27 seconds, one spot image obtained. TD: 08/06/2017 20:20 MTDD
[2017-08-07] MEDS: SACCHAROMYCES BOULARDII 250 MG CAPSULE PO SCH ×2 (10:30→16:16)
[2017-08-07] MEDS: POLYETHYLENE GLYCOL 3350 17 GM PACKET PO SCH (10:30)
[2017-08-07] MEDS: FAMOTIDINE 20 MG/50 ML 50 ML IV SCH ×2 (10:40→21:48)
[2017-08-07] MEDS ORDERED: levoFLOXacin 500 MG/100 ML 500 MG/100 ML BAG IV SCH (13:00)
--- NOTE | 2017-08-07 16:32 | PROVIDER PROGRESS NOTE ---
Assessment/Plan - Problem List (1) Cachexia Assessment/Plan: After the changed the POLST to allow enteral tube feeds yesterday, the ng tube was placed under fluoro and feeds started along with water flushes No diarrhea Calories have been calculated by Gear Tester and she is already at the total calories needed and tolerating it (2) Aspiration pneumonia Qualifiers: Laterality: right Lung location: lower lobe of lung Assessment/Plan: Pt is on Day #5 of a 14 day course of antibiotics for aspiration pneumonia. The reason for longer stay: She will be transitioned to appropriate po antibiotics if they can be crushed and put down an 8Fr Dobhoff feeding tube. If not, she will need a PICC line for 9 more days of iv antibiotics to be treated at a SNF that will accept a PICC line. (3) Parkinsons disease Assessment/Plan: Continue meds - Current Meds Current Meds: Current Medications Generic Name Dose Route Start Last Admin Trade Name Freq PRN Reason Stop Dose Admin Carboxymethylcellulose 1 drops 08/03/17 15:03 08/04/17 12:23 Refresh 1% Ophth Drops EACHEYE 1 drops Q4HR PRN Administration Dry Eye Dronabinol 2.5 mg 08/06/17 11:00 08/07/17 16:16 Marinol PO 2.5 mg BIDAC ELVIRA Administration Famotidine 50 mls @ 100 mls/hr 08/03/17 21:00 08/07/17 11:35 Pepcid 20 Mg/50 Ml IV Infused BID ELVIRA Infusion Clindamycin Phosphate 50 mls @ 100 mls/hr 08/03/17 22:00 08/07/17 16:15 Cleocin 600 Mg/50 Ml IV 100 mls/hr Q6H ELVIRA Administration Potassium Chloride/Dextrose/Sod Cl 1,000 mls @ 83.333 mls/hr 08/05/17 13:00 08/07/17 15:41 IV 83.333 mls/hr .Q12H ELVIRA Infusion Levofloxacin 500 mg in 100 mls @ 100 mls/hr 08/07/17 13:00 08/07/17 15:00 Levaquin 500 Mg/100 Ml IV Infused Q48H ELVIRA Infusion Polyethylene Glycol 17 gm 08/04/17 09:00 08/07/17 10:30 Miralax PO Not Given DAILY ELVIRA Pramipexole Dihydrochloride 0.25 mg 08/04/17 06:00 08/07/17 15:32 Mirapex PO Not Given TID ELVIRA Saccharomyces Boulardii 250 mg 08/03/17 21:00 08/07/17 16:16 Florastor PO 250 mg BID ELVIRA Administration Scopolamine HBr 1 patch 08/06/17 17:00 08/06/17 20:32 Transderm-Scop TOP 1 patch Q3D ELVIRA Administration Sodium Chloride 10 ml 08/03/17 14:01 08/03/17 15:47 Normal Saline Flush 0.9% IVP 10 ml PRN PRN Administration NEEDED PER PROVIDER ORDERS Sodium Chloride 10 ml 08/03/17 22:00 08/07/17 15:37 Normal Saline Flush 0.9% IVP Not Given Q8HR ELVIRA - Lab Result Fish Bone Diagrams: 08/06/17 05:06 08/07/17 05:48 - Additional Planning My Orders: My Active Orders 08/06/17 15:45 Tube Feeding [RC] QSHIFT 08/06/17 17:00 Scopolamine Patch [Transderm-Scop] 1 patch TOP Q3D 08/07/17 13:00 levoFLOXacin 500 MG/100 ML [Levaquin 500 mg/100 ml] 500 mg in 100 ml IV Q48H Subjective - Subjective Patient Reports: Resting Comfortably Nursing Reports: No Complaints Objective Vital Signs: Vital Signs - 24 hr 08/06/17 08/07/17 08/07/17 23:45 13:59 16:03 Temperature 36.9 C 36.4 C L 36.5 C Heart Rate [ 79 87 88 Brachial] Respiratory 22 20 20 Rate Blood Pressure 119/72 147/73 H 121/71 [Right Brachial artery] O2 Saturation 98 100 99 Oxygen O2 Source Room air I&O (Last 24 Hrs): Intake and Output Totals x24h 08/05/17 08/06/17 08/07/17 23:59 23:59 23:59 Intake Total 1670 2373 2462.650 Output Total 650 0 Balance 1670 1723 2462.650 General: Other (Somnolent) HEENT: Other (ng tube in place Dry oral mucosa) Cardiovascular: Regular rate Respiratory: No respiratory distress Extremities: No edema - Results Results: Laboratory Results WBC 7.9 x10^3/uL (4.8-10.8) 08/06/17 05:06 RBC 3.41 10^6/uL (4.20-5.40) L 08/06/17 05:06 Hgb 10.3 g/dL (12.0-16.0) L 08/06/17 05:06 Hct 30.6 % (37.0-47.0) L 08/06/17 05:06 MCV 89.9 fL (81.0-99.0) 08/06/17 05:06 MCH 30.1 pg (27.0-31.0) 08/06/17 05:06 MCHC 33.5 g/dL (32.0-36.0) 08/06/17 05:06 RDW 13.8 % (12.0-15.0) 08/06/17 05:06 Plt Count 287 10^3/uL (130-450) 08/06/17 05:06 MPV 7.3 fL (7.9-10.8) L 08/06/17 05:06 Neut # 6.5 10^3/uL (1.5-6.6) 08/06/17 05:06 Lymph # 0.5 10^3/uL (1.5-3.5) L 08/06/17 05:06 [place] # 0.8 10^3/uL (0.0-1.0) 08/06/17 05:06 Eos # 0.1 10^3/uL (0.0-0.7) 08/06/17 05:06 Baso # 0.0 10^3/uL (0.0-0.1) 08/06/17 05:06 Absolute Nucleated RBC 0.00 x10^3/uL 08/06/17 05:06 Nucleated RBC % 0.0 /100WBC 08/06/17 05:06 Sodium 134 mmol/L (135-145) L 08/07/17 05:48 Potassium 3.9 mmol/L (3.5-5.0) 08/07/17 05:48 Chloride 103 mmol/L (101-111) 08/07/17 05:48 Carbon Dioxide 25 mmol/L (21-32) 08/07/17 05:48 Anion Gap 6.0 (6-13) 08/07/17 05:48 BUN < 5 mg/dL (6-20) L 08/07/17 05:48 Creatinine 0.3 mg/dL (0.4-1.0) L 08/07/17 05:48 Estimated GFR (MDRD) 211 (>89) 08/07/17 05:48 Glucose 136 mg/dL (70-100) H 08/07/17 05:48 Lactic Acid 1.3 mmol/L (0.5-2.2) 08/03/17 11:04 Calcium 8.1 mg/dL (8.5-10.3) L 08/07/17 05:48 Phosphorus 2.6 mg/dL (2.5-4.6) 08/07/17 05:48 Magnesium 1.6 mg/dL (1.7-2.8) L 08/07/17 05:48 Total Bilirubin 0.3 mg/dL (0.2-1.0) 08/07/17 05:48 AST 19 IU/L (10-42) 08/07/17 05:48 ALT 11 IU/L (10-60) 08/07/17 05:48 Alkaline Phosphatase 47 IU/L (42-121) 08/07/17 05:48 Total Protein 6.2 g/dL (6.7-8.2) L 08/07/17 05:48 Albumin 2.5 g/dL (3.2-5.5) L 08/07/17 05:48 Globulin 3.7 g/dL (2.1-4.2) 08/07/17 05:48 Albumin/Globulin Ratio 0.7 (1.0-2.2) L 08/07/17 05:48 Prealbumin 8 mg/dL (18-45) L 08/07/17 05:48
[2017-08-07] MEDS ORDERED: CARBOXYMETHYLCELLULOSE OPHTH DROPS ONE (22:23)
[2017-08-07] MEDS: CARBOXYMETHYLCELLULOSE OPHTH DROPS EACHEYE PRN (22:24)
[2017-08-08] MEDS: CLINDAMYCIN 600 MG/50 ML 50 ML IV SCH (03:19)
[2017-08-08] MEDS: D5NS W/20 MEQ KCL 1,000 ML IV SCH (06:12)
[2017-08-08] MEDS: DRONABINOL 2.5 MG CAPSULE PO SCH (06:14)
[2017-08-08] MEDS: PRAMIPEXOLE 0.25 MG TABLET PO SCH (06:14)
[2017-08-08] MEDS: SODIUM CHLORIDE FLUSH 0.9% 10 ML SYRINGE IVP SCH (06:23)
[2017-08-08] MEDS ORDERED: CLINDAMYCIN 150 MG CAPSULE PO SCH (08:00)
[2017-08-08 08:27] VITALS: BP 104/60
[2017-08-08] MEDS: SACCHAROMYCES BOULARDII 250 MG CAPSULE PO SCH (08:40)
[2017-08-08] MEDS: POLYETHYLENE GLYCOL 3350 17 GM PACKET PO SCH (08:40)
--- NOTE | 2017-08-08 09:21 | Discharge Plan ---
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 Notify PCP of admission and forward orders to primary provider for signature. Weight on admission and Monthly. Call PCP immediately if weight increases by 20 pounds or if patient develops dyspnea, chest pain/tightness or edema. House Bowel Program: YES If no BM after 2 days, nurse may give M.O.M. 30ml PO PRN and /or ducolax Supp 1 MO and /or FAISAL 250mg P.O., and/or senna 1-2 tabs PO. On day 3 nurse may give repeat above order until residents constipation is resolved. Immunizations: Annual Influenza Vaccine: YES. (between Apr 17 and November 14.) Unless allergy or already given Two-Step PPD: YES per [facility] [id number] or appropriate documentation of approved exceptions Treatments & Other Orders: Weekly BMP, Mag and CBC Oxygen Orders: No Lab Tests or X-Rays Orders: No Orthopedic Orders: None. Medications: PLEASE REFER TO THE DISCHARGE MEDICATION LIST. Insulin Orders? None Allergies and Adverse Reactions: Allergies Allergy/AdvReac Type Severity Reaction Status Date / Time Penicillins Allergy Unknown Verified 08/03/17 10:43 shellfish derived Allergy Anaphylaxis Verified 08/03/17 10:43 - Medications New Prescriptions: Acetaminophen [Tylenol] 650 mg PO Q4HR PRN #30 tablet PRN Reason: Pain 1 to 4 Clindamycin [Cleocin] 450 mg PO TID #21 capsule Dronabinol [Marinol] 2.5 mg PO BIDAC #60 capsule Polyethylene Glycol 3350 [Miralax] 17 gm PO DAILY #30 packet Saccharomyces Boulardii [Florastor] 250 mg PO BID #10 capsule - Diet Type: Tube feeding (30 ml an hour of Jevity 1.2. and water flush at 13 ml/hr.) Texture: Puree Liquids: Honey thick May have monthly special meal: Yes - Therapies | Activity Rehabilitation Potential: Maintain present ADL Functional Activity: Turn and position tid Weight Bearing: No Weight Extremities: NWBLLE, NWBRLE"
--- NOTE | 2017-08-19 12:43 | DISCHARGE SUMMARY ---
Physician: Genie Swan MD DATE OF ADMISSION: 08/03/2017 DATE OF DISCHARGE: 08/08/2017 HISTORY OF PRESENT ILLNESS: This is an 86-year-old white female who has a history of marked Parkinson disease, a functional quadriplegic with all care given by her caregiver, who is her . The patient was brought in with visible shortness of breath, minimally responsive. She was found to have aspiration pneumonia, volume depletion, and admitted for management of these. HOSPITAL COURSE AND DISCHARGE DIAGNOSES 1. Aspiration pneumonia. The patient was started on broad spectrum antibiotics to cover oral leo. She was hydrated peripherally. The patient was previously already evaluated by Speech Therapy and known to have multiple aspirations. She was put on a high calorie, pureed diet with thickened liquids and even with this, as her mental status improved back to her baseline, she was only able to tolerate approximately 2 teaspoons of food with each meal. The patient's respiratory status improved, she had a weak cough, unable to produce sputum. She was put on a scopolamine patch to help dry her secretions. The patient was discharged to a SNF with p.o. antibiotics, crushable, put into applesauce to allow her to finish her course of treatment. 2. Parkinson disease with marked weakness (functional quadriplegia). The patient was kept on her carbidopa/levodopa, these pills were also crushed and taken with applesauce adequately. Her disease was so advanced that her normal condition was bedrest, mouth breathing, she opened her eyes only minimally, had brief answers to her family, was able to raise her arms but too weak to feed herself. Patient had a previous POLST indicating DNR, and this was respected. 3. 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 On the POLST, the request was for no tube feedings. However, because of severely limited p.o. intake with her debilitated state from advanced Parkinson's, discussion with the and daughter was undertaken, and the POLST was then changed by the , the power of energy attorney, to indicate that enteral feeding would be allowed. Patient had a Dobbhoff tube placed under fluoroscopy, and she was started on Jevity feeds along with water flushes in addition to her very minimal oral intake of food and crushed pills. Patient was discharged to the SNF with Jevity feeds, either by pump or in bolus form along with water. 4. Chronic dry eyes. Patient had continued eye drops during this admission. 5. CODE STATUS: DNR. MEDICATIONS Discharge medications at the time of discharge: 1. Tylenol p.r.n. 2. Carbidopa/levodopa p.o. 3. Clindamycin 450 mg p.o. t.i.d. for 7 days. 4. Marinol 2.5 mg p.o. b.i.d. (for improving appetite). 5. Pure and Gentle eyedrops bilaterally. 6. MiraLax 17 gram packet p.o. daily. 7. Mirapex 0.125 mg p.o. t.i.d. 8. Florastor 250 mg p.o. b.i.d. 9. Tolterodine tartrate 2 mg p.o. at bedtime. ALLERGIES 1. PENICILLIN. 2. SHELLFISH. CONDITION AT THE TIME OF DISCHARGE: Poor due to her malnutrition. PHYSICAL EXAMINATION VITAL SIGNS: Blood pressure 122/60, pulse 94 and sinus rhythm, afebrile, respiratory rate 20. HEENT: Lethargy, dry oral mucosa. Dobbhoff via nose in place. RESPIRATORY: Chest with diminished breath sounds diffusely. No wheezing. CARDIAC: Heart sounds normal without murmur. GASTROINTESTINAL: Abdomen soft with normal bowel sounds. EXTREMITIES: No peripheral edema. NEUROLOGIC: Showing signs of advanced Parkinson's. LABORATORY AND IMAGING: Reviewed and summarized above. CODE STATUS: DNR. FOLLOWUP: With her PCP. Total time required for completion of discharge: 55 minutes. TD: 08/15/2017 21:11 [facility]
== END 2017-08-08 12:30 | DRG 177 ==
LOC: EDUNIT# → ED 10:21 → MS2 14:01
PROVIDERS: ADMIT Hospitalist; ATTEND Internal Medicine
DX: J69.0 Pneumonitis due to inhalation of food and vomit (principal); R53.2 Functional quadriplegia; Z87.01 Personal history of pneumonia (recurrent); E46 Unspecified protein-calorie malnutrition; Z68.1 Body mass index [BMI] 19.9 or less, adult; F32.9 Major depressive disorder, single episode, unspecified; G20 Parkinson's disease; F02.80 Dementia in other diseases classified elsewhere, unspecified severity, without behavioral disturbance, psychotic disturbance, mood disturbance, and anxiety; E86.9 Volume depletion, unspecified; J44.9 Chronic obstructive pulmonary disease, unspecified; H04.129 Dry eye syndrome of unspecified lacrimal gland; R32 Unspecified urinary incontinence; M19.90 Unspecified osteoarthritis, unspecified site; Z66 Do not resuscitate; Z79.899 Other long term (current) drug therapy
CPT/HCPCS: 36415; 43752; 71020; 80048; 80053; 83605; 83735; 84100; 84134; 85025; 87040; 93005; 96365; 99283; 99284

== ENCOUNTER 2017-08-08 12:38 | Outpatient (CLI) | payer MEDICARE | END 2017-08-08 12:39 | LOC: EMS 12:38 | PROVIDERS: ATTEND Surgery | DX: J18.9 Pneumonia, unspecified organism (principal) | CPT/HCPCS: A0425; A0428 ==

== ENCOUNTER 2017-08-09 05:52 | Outpatient (CLI) | payer MEDICARE | END 2017-08-09 05:53 | disposition critical access hospital (66) | LOC: EMS 05:52 | PROVIDERS: ATTEND Surgery | DX: Z46.59 Encounter for fitting and adjustment of other gastrointestinal appliance and device (principal) | CPT/HCPCS: A0425; A0429 ==

== ENCOUNTER 2017-08-09 05:56 | Emergency (ER) | payer MEDICARE ==
[2017-08-09 06:03] VITALS: BP 108/55
--- NOTE | 2017-08-09 06:12 | ED Physician Documentation ---
History of Present Illness - Stated complaint Stated Complaint: NG TUBE REPLACEMENT - Chief complaint Chief Complaint: General - History obtained from History obtained from: Patient, EMS - History of Present Illness Timing: Today - Additonal information Additional information: Patient had an NG tube in for recurrent aspiration pneumonia and feeding difficulties. Feeding tube is nearly pulled out today at [facility]. She was sent in to have the tube replaced. Patient has no complaints Review of Systems GI: denies: Vomiting PD PAST MEDICAL HISTORY - Past Medical History Cardiovascular: Deep vein thrombosis Respiratory: COPD, Pneumonia, Shortness of breath Neuro: Dementia, Parkinson's Endocrine/Autoimmune: None GI: Hepatitis : Incontinence HEENT: Other Psych: Depression Musculoskeletal: Osteoarthritis Derm: Other - Past Surgical History Past Surgical History: Yes HEENT: Cataracts - Present Medications Home Medications: Ambulatory Orders Medication Instructions Recorded Confirmed Hypromellose [Pure & Gentle Eye 1 drops EACHEYE PRN PRN 06/28/17 08/03/17 Drops] Acetaminophen [Tylenol] 650 mg PO Q4HR PRN #30 tablet 08/08/17 Carbidopa/Levodopa 1 each PO BID #0 08/08/17 08/03/17 [Carbidopa-Levodopa 25-100 Tab] Clindamycin [Cleocin] 450 mg PO TID #21 capsule 08/08/17 Dronabinol [Marinol] 2.5 mg PO BIDAC #60 capsule 08/08/17 Polyethylene Glycol 3350 [Miralax] 17 gm PO DAILY #30 packet 08/08/17 Pramipexole Di-HCl [Mirapex] 0.25 mg PO TID #0 08/08/17 08/03/17 Saccharomyces Boulardii [Florastor] 250 mg PO BID #10 capsule 08/08/17 Tolterodine Tartrate [Tolterodine 2 mg PO 2100 #0 08/08/17 08/03/17 Tartrate ER] - Allergies Allergies/Adverse Reactions: Allergies Allergy/AdvReac Type Severity Reaction Status Date / Time Penicillins Allergy Unknown Verified 08/09/17 06:19 shellfish derived Allergy Anaphylaxis Verified 08/09/17 06:19 - Social History Does the pt smoke?: No Smoking Status: Never smoker Does the pt drink ETOH?: No Does the pt have substance abuse?: No - Immunizations Immunizations are current?: Yes - POLST Patient has POLST: Yes POLST Status: DNR PD ED PE NORMAL - Vitals Vital signs reviewed: Yes - General General: No acute distress, Well developed/nourished, Other (alert) - HEENT HEENT: Moist mucous membranes - Neck Neck: Supple, no meningeal sign - Cardiac Cardiac: RRR, Strong equal pulses - Respiratory Respiratory: No respiratory distress, Clear bilaterally - Abdomen Abdomen: Soft, Non tender, Non distended - Derm Derm: Warm and dry - Neuro Neuro: Other (alert) Results - Vitals Vitals: Vital Signs - 24 hr 08/09/17 05:58 Temperature 36.7 C Heart Rate 83 Respiratory 18 Rate Blood Pressure 108/55 L O2 Saturation 98 Oxygen O2 Source Room air PD MEDICAL DECISION MAKING - ED course Complexity details: considered differential, d/w patient ED course: NG tube replaced. Tolerated well. Flushes easily and gastric contents were aspirated. Air sounds were heard over the epigastrium as well. This document was made in part using voice recognition software. While efforts are made to proofread this document, sound alike and grammatical errors may occur. Departure - Departure Disposition: 01 Home, Self Care Clinical Impression: Encounter for nasogastric (NG) tube placement Condition: Good Instructions: Tube NG Care Dc Follow-Up: Triny Yin MD [Primary Care Provider] - Within 1 week Comments: The NG tube was replaced today.
== END 2017-08-09 06:30 | disposition home or self-care (01) ==
LOC: EDUNIT# → SUPCPDRO 05:56 → ED 05:56
DX: Z46.59 Encounter for fitting and adjustment of other gastrointestinal appliance and device (principal); G20 Parkinson's disease; F02.80 Dementia in other diseases classified elsewhere, unspecified severity, without behavioral disturbance, psychotic disturbance, mood disturbance, and anxiety; Z86.718 Personal history of other venous thrombosis and embolism
CPT/HCPCS: 99282; 99283

== ENCOUNTER 2017-08-09 06:32 | Outpatient (CLI) | payer MEDICARE | END 2017-08-09 06:33 | disposition home or self-care (01) | LOC: EMS 06:32 | PROVIDERS: ATTEND Surgery | DX: Z74.01 Bed confinement status (principal) | CPT/HCPCS: A0425; A0428 ==